=== PATIENT | female | born 1940 | race Caucasian/White ===

== ENCOUNTER → 2017-05-08 | Outpatient (CLI) | payer MEDICAID, MEDICARE ==
[~2017-05-08] MED LIST: ALBU8.5H2 INH; ALPR0.25 PO; AMLO10TA82 PO; ASPI-892 PO; BUDE6HFA INH; CLOP75TA28 PO; ESCI10TA PO; FISH1CAP15 PO; HYDR-3063 PO; IBUP-15 PO; LOSA100T16 PO; MELO7.5T; METF-380; NFNEB10T PO; OLME1TAB25; OMG1KC PO; ONDAN4ODT SL; OXYC-109 PO; RANI-10 PO; SIMV10TA3 PO; TRAZ100T92 PO; TRAZ150T42 PO; TYLENOL
== END ==
LOC: CARD 10:10
PROVIDERS: ATTEND Internal Medicine Cardiovascular Disease
DX: I25.10 Atherosclerotic heart disease of native coronary artery without angina pectoris (principal); I65.23 Occlusion and stenosis of bilateral carotid arteries; R07.89 Other chest pain; I10 Essential (primary) hypertension; E78.2 Mixed hyperlipidemia; R06.02 Shortness of breath; J44.9 Chronic obstructive pulmonary disease, unspecified
CPT/HCPCS: 93306

== ENCOUNTER → 2017-05-30 | Outpatient (CLI) | payer MEDICAID, MEDICARE ==
[~2017-05-30] MED LIST changes: +CATHETER FLUSH 10 ML SYR IV PRN; +REGADENOSON 0.4 MG/5 ML SYR (LEXISCAN) IV ONE
[2017-05-30 13:39] VITALS: BP 168/101
[2017-05-30 13:43] VITALS: BP 144/59
--- NOTE | 2017-05-31 07:19 | STRESS TEST ---
DATE OF SERVICE: 05/30/2017 LEXISCAN MYOVIEW STRESS TEST REPORT REFERRING PHYSICIAN: Renzo Reed MD. Baseline heart rate is 65, baseline blood pressure 168/101. Baseline EKG is sinus rhythm with no ischemic changes. In summary, the patient was injected with 10.74 mCi of technetium-99 Myoview and the resting images were obtained. Then, the patient received 0.4 mg of Lexiscan followed by 31.2 mCi of technetium-99 Myoview. Throughout the test, there were no EKG changes. The resting and stress images were reviewed and compared in the short axis, horizontal long axis, and vertical long axis views. Review of the images showed breast attenuation with mild decreased uptake involving the mid to apical anterior wall and anterolateral wall with mild reversibility. SSS is 6, SDS 3, and TID value 1.32. On the gated images, the left ventricle appeared to be normal in size with normal contractility. Calculated ejection fraction is 70%. CONCLUSION: 1. The patient tolerated Lexiscan well. 2. Breast attenuation with mild reversible ischemia involving the mid to apical anterior wall and anterolateral wall. 3. Transient ischemic dilatation with TID value 1.32. 4. Normal left ventricular size with normal contractility. Calculated ejection fraction is 70%. Job ID: [id number] DocumentID: [id number] Dictated Date: 05/30/2017 17:32:53 Soap Inspector Date: 05/30/2017 23:51:41 Dictated By: TED ORNELAS MD
== END ==
LOC: CARD 10:41
PROVIDERS: ATTEND Internal Medicine Cardiovascular Disease
DX: I25.10 Atherosclerotic heart disease of native coronary artery without angina pectoris (principal); I65.23 Occlusion and stenosis of bilateral carotid arteries; R07.89 Other chest pain; I10 Essential (primary) hypertension; E78.2 Mixed hyperlipidemia; R06.02 Shortness of breath; J44.9 Chronic obstructive pulmonary disease, unspecified
CPT/HCPCS: 78452; 93017

== ENCOUNTER 2017-06-06 06:41 | Day surgery (SDC) | payer MEDICARE ==
[~2017-06-06] VITALS: Ht 167.6 cm; Wt 83.7 kg
[2017-06-06] VITALS (12 sets, daily range): BP systolic 122–163; BP diastolic 55–76
[~2017-06-06 06:41] MED LIST changes: -CATHETER FLUSH 10 ML SYR IV PRN; -REGADENOSON 0.4 MG/5 ML SYR (LEXISCAN) IV ONE
--- OUTSIDE RECORDS SUMMARY | 2017-06-06 06:46 | XMS REPORT | Continuity of Care Document ---
Author Author [facility] Organization [facility] Address Unknown Phone Unavailable Allergies Active Description Code Type Severity Reaction Onset Reported/Identified Relationship to Patient Clinical Status Yes No Known Drug Allergies [id number] Drug Allergy Unknown N/A 02/17/2009 Medications There is no data. Problems Date Dx Coded Attending Type Code Diagnosis Diagnosed By 02/20/2012 Ot 715.31 LOC OSTEOARTH NOS-SHLDER 02/20/2012 Ot 719.41 JOINT PAIN- SHLDER 10/29/2015 Ot 272.4 HYPERLIPIDEMIA NEC/NOS 10/29/2015 Ot 401.9 HYPERTENSION NOS 10/29/2015 Ot 414.01 CORONARY ATHEROSCLEROSIS OF [place] CORON 10/29/2015 Ot 397.0 TRICUSPID VALVE DISEASE 10/29/2015 Ot 401.9 HYPERTENSION NOS 10/29/2015 Ot 414.00 CORON ATHEROSCLER NOS TYPE VESSEL, NATIV 10/29/2015 Ot 424.0 MITRAL VALVE DISORDER 10/29/2015 Ot 272.4 HYPERLIPIDEMIA NEC/NOS 10/29/2015 Ot 401.9 HYPERTENSION NOS 10/29/2015 Ot 789.01 ABDOMINAL PAIN, RIGHT UPPER QUADRANT 10/29/2015 Ot 397.0 TRICUSPID VALVE DISEASE 10/29/2015 Ot 401.9 HYPERTENSION NOS 10/29/2015 Ot 414.00 CORON ATHEROSCLER NOS TYPE VESSEL, NATIV 10/29/2015 Ot 424.0 MITRAL VALVE DISORDER 10/29/2015 GONZALEZEDUARD CADENA VEHICLE CALIBRATION ENGINEER Ot 401.9 HYPERTENSION NOS 10/29/2015 EDURAD GONZALEZ VEHICLE CALIBRATION ENGINEER Ot 414.00 CORON ATHEROSCLER NOS TYPE VESSEL, NATIV 10/29/2015 EDUARD GONZALEZ VEHICLE CALIBRATION ENGINEER Ot 782.3 EDEMA 10/29/2015 EDUARD GONZALEZ VEHICLE CALIBRATION ENGINEER Ot 786.09 RESPIRATORY ABNORM NEC 10/29/2015 TED ORNELAS MD Ot I25.10 ATHSCL HEART DISEASE OF [place] CORONARY 10/29/2015 TED ORNELAS MD Ot I25.10 ATHSCL HEART DISEASE OF [place] CORONARY 11/01/2015 TED ORNELAS MD Ot I25.10 ATHSCL HEART DISEASE OF [place] CORONARY 11/01/2015 TED ORNELAS MD Ot E78.2 MIXED HYPERLIPIDEMIA 11/01/2015 TED ORNELAS MD Ot I10 ESSENTIAL (PRIMARY) HYPERTENSION 11/01/2015 TED ORNELAS MD Ot I25.10 ATHSCL HEART DISEASE OF [place] CORONARY 11/01/2015 TED ORNELAS MD Ot R06.02 SHORTNESS OF BREATH 11/01/2015 TED ORNELAS MD Ot R07.89 OTHER CHEST PAIN 11/05/2015 TED ORNELAS MD Ot E78.2 MIXED HYPERLIPIDEMIA 11/05/2015 TED ORNELAS MD Ot I10 ESSENTIAL (PRIMARY) HYPERTENSION 11/05/2015 TED ORNELAS MD Ot I25.10 ATHSCL HEART DISEASE OF [place] CORONARY 11/05/2015 TED ORNELAS MD Ot R06.02 SHORTNESS OF BREATH 11/05/2015 TED ORNELAS MD Ot R07.89 OTHER CHEST PAIN 11/07/2015 TED ORNELAS MD Ot E78.2 MIXED HYPERLIPIDEMIA 11/07/2015 TED ORNELAS MD Ot I10 ESSENTIAL (PRIMARY) HYPERTENSION 11/07/2015 TED ORNELAS MD Ot I25.10 ATHSCL HEART DISEASE OF [place] CORONARY 11/07/2015 TED ORNELAS MD Ot R06.02 SHORTNESS OF BREATH 11/07/2015 TED ORNELAS MD Ot R07.89 OTHER CHEST PAIN 11/18/2015 TED ORNELAS MD Ot E78.2 MIXED HYPERLIPIDEMIA 11/18/2015 TED ORNELAS MD Ot I10 ESSENTIAL (PRIMARY) HYPERTENSION 11/18/2015 TED ORNELAS MD Ot I25.10 ATHSCL HEART DISEASE OF [place] CORONARY 11/18/2015 TED ORNELAS MD Ot R06.02 SHORTNESS OF BREATH 11/18/2015 TED ORNELAS MD Ot R07.89 OTHER CHEST PAIN 11/24/2015 TED ORNELAS MD Ot E78.2 MIXED HYPERLIPIDEMIA 11/24/2015 TED ORNELAS MD J Ot I10 ESSENTIAL (PRIMARY) HYPERTENSION 11/24/2015 TED ORNELAS MD Ot I25.10 ATHSCL HEART DISEASE OF [place] CORONARY 11/24/2015 TED ORNELAS MD Ot R06.02 SHORTNESS OF BREATH 11/24/2015 TED ORNELAS MD Ot R07.89 OTHER CHEST PAIN 11/26/2015 TED ORNELAS MD Ot E78.2 MIXED HYPERLIPIDEMIA 11/26/2015 TED ORNELAS MD Ot I10 ESSENTIAL (PRIMARY) HYPERTENSION 11/26/2015 TED ORNELAS MD Ot I25.10 ATHSCL HEART DISEASE OF [place] CORONARY 11/26/2015 TED ORNELAS MD Ot R06.02 SHORTNESS OF BREATH 11/26/2015 TED ORNELAS MD Ot R07.89 OTHER CHEST PAIN 12/06/2015 TED ORNELAS MD Ot E78.2 MIXED HYPERLIPIDEMIA 12/06/2015 TED ORNELAS MD Ot I10 ESSENTIAL (PRIMARY) HYPERTENSION 12/06/2015 TED ORNELAS MD Ot I25.10 ATHSCL HEART DISEASE OF [place] CORONARY 12/06/2015 TED ORNELAS MD Ot R06.02 SHORTNESS OF BREATH 12/06/2015 TED ORNELAS MD Ot R07.89 OTHER CHEST PAIN 12/17/2015 TED ORNELAS MD Ot E78.2 MIXED HYPERLIPIDEMIA 12/17/2015 TED ORNELAS MD Ot I10 ESSENTIAL (PRIMARY) HYPERTENSION 12/17/2015 TED ORNELAS MD Ot I25.10 ATHSCL HEART DISEASE OF [place] CORONARY 12/17/2015 TED ORNELAS MD Ot I65.23 OCCLUSION AND STENOSIS OF [place] 12/17/2015 TED ORNELAS MD Ot R06.02 SHORTNESS OF BREATH 12/17/2015 TED ORNELAS MD Ot R07.89 OTHER CHEST PAIN 12/17/2015 TED ORNELAS MD Ot E78.2 MIXED HYPERLIPIDEMIA 12/17/2015 TED ORNELAS MD Ot I10 ESSENTIAL (PRIMARY) HYPERTENSION 12/17/2015 TED ORNELAS MD Ot I25.10 ATHSCL HEART DISEASE OF [place] CORONARY 12/17/2015 TED ORNELAS MD Ot I65.23 OCCLUSION AND STENOSIS OF [place] 12/17/2015 TED ORNELAS MD Ot R06.02 SHORTNESS OF BREATH 12/17/2015 TED ORNELAS MD Ot R07.89 OTHER CHEST PAIN 12/22/2015 GELLENDER DO, ALONSO Gandara Ot E07.9 DISORDER OF THYROID, UNSPECIFIED 12/22/2015 DELFINLENDER DO, ALONSO Gandara Ot E07.9 DISORDER OF THYROID, UNSPECIFIED 01/05/2016 DELFINLENDER DO, ALONSO Gandara Ot E04.9 NONTOXIC GOITER, UNSPECIFIED 01/07/2016 GELLENDER DO, ALONSO Gandara Ot E04.9 NONTOXIC GOITER, UNSPECIFIED 01/10/2016 TED ORNELAS MD Ot E78.2 MIXED HYPERLIPIDEMIA 01/10/2016 TED ORNELAS MD Ot I10 ESSENTIAL (PRIMARY) HYPERTENSION 01/10/2016 TED ORNELAS MD Ot I25.10 ATHSCL HEART DISEASE OF [place] CORONARY 01/10/2016 TED ORNELAS MD Ot I65.23 OCCLUSION AND STENOSIS OF [place] 01/10/2016 TED ORNELAS MD Ot R06.02 SHORTNESS OF BREATH 01/10/2016 TED ORNELAS MD Ot R07.89 OTHER CHEST PAIN 01/11/2016 LINCOLNDER , ALONSO Gandara Ot E07.9 DISORDER OF THYROID, UNSPECIFIED 01/17/2016 TED ORNELAS MD Ot E78.2 MIXED HYPERLIPIDEMIA 01/17/2016 TED ORNELAS MD Ot I10 ESSENTIAL (PRIMARY) HYPERTENSION 01/17/2016 TED ORNELAS MD Ot I25.10 ATHSCL HEART DISEASE OF [place] CORONARY 01/17/2016 TED ORNELAS MD Ot I65.23 OCCLUSION AND STENOSIS OF [place] 01/17/2016 TED ORNELAS MD Ot R06.02 SHORTNESS OF BREATH 01/17/2016 TED ORNELAS MD Ot R07.89 OTHER CHEST PAIN 01/21/2016 DELFINLENDER DO, ALONSO Gandara Ot E07.9 DISORDER OF THYROID, UNSPECIFIED 01/28/2016 DELFINLENDER DO, ALONSO Gandara Ot E04.9 NONTOXIC GOITER, UNSPECIFIED 02/08/2016 GELLENDER DO, ALONSO Gandara Ot E04.9 NONTOXIC GOITER, UNSPECIFIED 03/23/2016 TED ORNELAS MD Ot E11.9 TYPE 2 DIABETES MELLITUS WITHOUT COMPLIC 03/23/2016 TED ORNELAS MD Ot E78.5 HYPERLIPIDEMIA, UNSPECIFIED 03/23/2016 TED ORNELAS MD Ot I10 ESSENTIAL (PRIMARY) HYPERTENSION 03/23/2016 TED ORNELAS MD Ot I25.10 ATHSCL HEART DISEASE OF [place] CORONARY 03/23/2016 TED ORNELAS MD Ot I65.23 OCCLUSION AND STENOSIS OF [place] 03/23/2016 TED ORNELAS MD Ot I70.0 ATHEROSCLEROSIS OF [place] 03/23/2016 TED ORNELAS MD Ot J44.9 CHRONIC OBSTRUCTIVE PULMONARY DISEASE, U 03/23/2016 TED ORNELAS MD Ot Z79.899 OTHER MACHINE BASTER (CURRENT) DRUG THERAPY 03/23/2016 TED ORNELAS MD Ot Z95.5 PRESENCE OF CORONARY ANGIOPLASTY IMPLANT 04/05/2016 TED ORNELAS MD Ot E11.9 TYPE 2 DIABETES MELLITUS WITHOUT COMPLIC 04/05/2016 TED ORNELAS MD Ot E78.5 HYPERLIPIDEMIA, UNSPECIFIED 04/05/2016 TED ORNELAS MD Ot I10 ESSENTIAL (PRIMARY) HYPERTENSION 04/05/2016 TED ORNELAS MD Ot I25.10 ATHSCL HEART DISEASE OF [place] CORONARY 04/05/2016 TED ORNELAS MD Ot I65.23 OCCLUSION AND STENOSIS OF [place] 04/05/2016 TED ORNELAS MD Ot I70.0 ATHEROSCLEROSIS OF [place] 04/05/2016 TED ORNELAS MD Ot J44.9 CHRONIC OBSTRUCTIVE PULMONARY DISEASE, U 04/05/2016 TED ORNELAS MD Ot Z79.899 OTHER CARE HOME (CURRENT) DRUG THERAPY 04/05/2016 TED ORNELAS MD Ot Z95.5 PRESENCE OF CORONARY ANGIOPLASTY IMPLANT 04/06/2016 TED ORNELAS MD Ot E11.9 TYPE 2 DIABETES MELLITUS WITHOUT COMPLIC 04/06/2016 TED ORNELAS MD Ot E78.5 HYPERLIPIDEMIA, UNSPECIFIED 04/06/2016 TED ORNELAS MD Ot I10 ESSENTIAL (PRIMARY) HYPERTENSION 04/06/2016 TED ORNELAS MD Ot I25.10 ATHSCL HEART DISEASE OF [place] CORONARY 04/06/2016 TED ORNELAS MD Ot I65.23 OCCLUSION AND STENOSIS OF [place] 04/06/2016 TED ORNELAS MD Ot I70.0 ATHEROSCLEROSIS OF [place] 04/06/2016 TED ORNELAS MD, Ot J44.9 CHRONIC OBSTRUCTIVE PULMONARY DISEASE, U 04/06/2016 TED ORNELAS MD Ot Z79.899 OTHER MACHINE BASTER (CURRENT) DRUG THERAPY 04/06/2016 TED ORNELAS MD Ot Z95.5 PRESENCE OF CORONARY ANGIOPLASTY IMPLANT 04/06/2016 TED ORNELAS MD Ot E11.9 TYPE 2 DIABETES MELLITUS WITHOUT COMPLIC 04/06/2016 TED ORNELAS MD Ot E78.5 HYPERLIPIDEMIA, UNSPECIFIED 04/06/2016 TED ORNELAS MD Ot I10 ESSENTIAL (PRIMARY) HYPERTENSION 04/06/2016 TED ORNELAS MD Ot I25.10 ATHSCL HEART DISEASE OF [place] CORONARY 04/06/2016 TED ORNELAS MD Ot I65.23 OCCLUSION AND STENOSIS OF [place] 04/06/2016 TED ORNELAS MD Ot I70.0 ATHEROSCLEROSIS OF [place] 04/06/2016 TED ORNELAS MD, Ot J44.9 CHRONIC OBSTRUCTIVE PULMONARY DISEASE, U 04/06/2016 TED ORNELAS MD Ot Z79.899 OTHER CARE HOME (CURRENT) DRUG THERAPY 04/06/2016 TED ORNELAS MD Ot Z95.5 PRESENCE OF CORONARY ANGIOPLASTY IMPLANT 05/07/2017 Ot 397.0 TRICUSPID VALVE DISEASE 05/07/2017 Ot 401.9 HYPERTENSION NOS 05/07/2017 Ot 414.00 CORON ATHEROSCLER NOS TYPE VESSEL, NATIV 05/07/2017 Ot 424.0 MITRAL VALVE DISORDER 05/07/2017 GONZALEZEDUARD CADENA VEHICLE CALIBRATION ENGINEER Ot 401.9 HYPERTENSION NOS 05/07/2017 GONZALEZEDUARD CADENA VEHICLE CALIBRATION ENGINEER Ot 414.00 CORON ATHEROSCLER NOS TYPE VESSEL, NATIV 05/07/2017 GONZALEZEDUARD CADENA VEHICLE CALIBRATION ENGINEER Ot 782.3 EDEMA 05/07/2017 GONZALEZEDUARD CADENA VEHICLE CALIBRATION ENGINEER Ot 786.09 RESPIRATORY ABNORM NEC 05/07/2017 TED ORNELAS MD Ot E78.2 MIXED HYPERLIPIDEMIA 05/07/2017 TED ORNELAS MD Ot I10 ESSENTIAL (PRIMARY) HYPERTENSION 05/07/2017 TED ORNELAS MD Ot I25.10 ATHSCL HEART DISEASE OF [place] CORONARY 05/07/2017 TED ORNELAS MD Ot R06.02 SHORTNESS OF BREATH 05/07/2017 TED ORNELAS MD Ot R07.89 OTHER CHEST PAIN 05/07/2017 TED ORNELAS MD Ot E78.2 MIXED HYPERLIPIDEMIA 05/07/2017 TED ORNELAS MD Ot I10 ESSENTIAL (PRIMARY) HYPERTENSION 05/07/2017 TED ORNELAS MD Ot I25.10 ATHSCL HEART DISEASE OF [place] CORONARY 05/07/2017 TED ORNELAS MD Ot R06.02 SHORTNESS OF BREATH 05/07/2017 TED ORNELAS MD Ot R07.89 OTHER CHEST PAIN 05/07/2017 TED ORNELAS MD Ot E78.2 MIXED HYPERLIPIDEMIA 05/07/2017 TED ORNELAS MD Ot I10 ESSENTIAL (PRIMARY) HYPERTENSION 05/07/2017 TED ORNELAS MD Ot I25.10 ATHSCL HEART DISEASE OF [place] CORONARY 05/07/2017 TED ORNELAS MD Ot I65.23 OCCLUSION AND STENOSIS OF [place] 05/07/2017 TED ORNELAS MD Ot R06.02 SHORTNESS OF BREATH 05/07/2017 TED ORNELAS MD Ot R07.89 OTHER CHEST PAIN 05/07/2017 ALONSO PATTERSON DO Ot E07.9 DISORDER OF THYROID, UNSPECIFIED 05/07/2017 ALONSO PATTERSON DO Ot E04.9 NONTOXIC GOITER, UNSPECIFIED 05/30/2017 TED ORNELAS MD Ot E78.2 MIXED HYPERLIPIDEMIA 05/30/2017 TED ORNELAS MD Ot I10 ESSENTIAL (PRIMARY) HYPERTENSION 05/30/2017 TED ORNELAS MD Ot I25.10 ATHSCL HEART DISEASE OF [place] CORONARY 05/30/2017 TED ORNELAS MD Ot I65.23 OCCLUSION AND STENOSIS OF [place] 05/30/2017 TED ORNELAS MD Ot J44.9 CHRONIC OBSTRUCTIVE PULMONARY DISEASE, U 05/30/2017 TED ORNELAS MD Ot R06.02 SHORTNESS OF BREATH 05/30/2017 TED ORNELAS MD Ot R07.89 OTHER CHEST PAIN Procedures There is no data. Results Test Result Range Bacterial urine culture - 03/22/16 07:05 Bacterial urine culture [id number] NRG COLONY COUNT 10,000/ML - 100,000/ML NRG FTX;REPORTABLE (AND NOT GROUP D STREP) NRG Bacterial susceptibility panel - 03/22/16 07:05 Gentamicin susceptibility test by minimum inhibitory concentration < = NRG Trimethoprim/sulfamethoxazole susceptibility test by minimum inhibitoryconcentration <= NRG Ampicillin susceptibility test by minimum inhibitory concentration R NRG Tobramycin susceptibility test by minimum inhibitory concentration < = NRG Cefazolin susceptibility test by minimum inhibitory concentration < = NRG Ceftriaxone susceptibility test by minimum inhibitory concentration <= NRG Ampicillin/sulbactam susceptibility test by minimum inhibitory concentration 4 NRG Piperacillin/tazobactam susceptibility test by minimum inhibitory concentration <= NRG Ciprofloxacin susceptibility test by minimum inhibitory concentration <= NRG Meropenem susceptibility test by minimum inhibitory concentration < = NRG Nitrofurantoin susceptibility test by minimum inhibitory concentration <= NRG Aztreonam susceptibility test by minimum inhibitory concentration < = NRG Extended spectrum beta lactamase (ESBL) producing bacteria susceptibility test by minimum inhibitory concentration - NRG Methicillin resistant Staphylococcus aureus (MRSA) screening culture - 07:08 MRSA SCREEN RESULT MRSA ISOLATED NRG Automated blood complete blood count (hemogram) panel - 03/23/16 04:08 Blood leukocytes automated count (number/volume) 7.4 10*3/uL 4.3-11.0 Blood erythrocytes automated count (number/volume) 4.06 10*6/uL 4.35-5.85 Venous blood hemoglobin measurement (mass/volume) 11.7 g/dL 11.5-16.0 Blood hematocrit (volume fraction) 35 % 35-52 Automated erythrocyte mean corpuscular volume 86 [foz_us] 80-99 Automated erythrocyte mean corpuscular hemoglobin (mass per erythrocyte) 29 pg 25-34 Automated erythrocyte mean corpuscular hemoglobin concentration measurement ( mass/volume) 33 g/dL 32-36 Automated erythrocyte distribution width ratio 14.6 % 10.0-14.5 Automated blood platelet count (count/volume) 326 10*3/uL 130-400 Automated blood platelet mean volume measurement 9.5 [foz_us] 7.4-10.4 Whole blood basic metabolic panel - 03/23/16 04:08 Serum or plasma sodium measurement (moles/volume) 139 mmol/L 135-145 Serum or plasma potassium measurement (moles/volume) 3.8 mmol/L 3.6-5.0 Serum or plasma chloride measurement (moles/volume) 110 mmol/L 98-107 Carbon dioxide 18 mmol/L 21-32 Serum or plasma anion gap determination (moles/volume) 11 mmol/L 5-14 Serum or plasma urea nitrogen measurement (mass/volume) 10 mg/dL 7-18 Serum or plasma creatinine measurement (mass/volume) 1.00 mg/dL 0.60-1.30 Serum or plasma urea nitrogen/creatinine mass ratio 10 NRG Serum or plasma creatinine measurement with calculation of estimated glomerular filtration rate 54 NRG Serum or plasma glucose measurement (mass/volume) 120 mg/dL 70-105 Serum or plasma calcium measurement (mass/volume) 8.7 mg/dL 8.5-10.1 Encounters ACCT No. Visit Date/Time Discharge Status Pt. Type Provider Facility Loc./Unit Complaint [id number] 05/30/2017 10:41:00 05/30/2017 23:59:59 CLS Outpatient TED ORNELAS MD [facility] CARD CAD I25.10 [id number] 05/08/2017 10:10:00 05/08/2017 23:59:59 CLS Outpatient TED ORNELAS MD [facility] CARD CAD [id number] 03/22/2016 06:46:00 03/23/2016 09:30:00 [facility] Outpatient TED ORNELAS MD [facility] CATH CHEST PAIN,CAD,HTN,HLP, DM,COPD [id number] 01/03/2016 12:01:00 01/03/2016 23:59:59 CLS Outpatient ALONSO PATTERSON DO [facility] RAD THYROID MASS, LFT THYROID LOBE [id number] 12/21/2015 09:20:00 12/21/2015 23:59:59 CLS Outpatient ALONSO PATTERSON DO [facility] RAD THYROID MASS [id number] 12/16/2015 06:55:00 12/16/2015 23:59:59 CLS Outpatient TED ORNELAS MD [facility] RAD CAD; CAROTID ARTRY STENOSIS; CHEST PAIN; HTN [id number] 11/01/2015 08:02:00 11/01/2015 23:59:59 CLS Outpatient TED ORNELAS MD [facility] CARD CAD,CHEST PAIN,HTN DYSPNEA [id number] 10/29/2015 10:25:00 10/29/2015 23:59:59 CLS Outpatient TED ORNELAS MD [facility] CARD CAD,CHEST PAIN,DYSPNEA, HTN,HLP [id number] 09/30/2012 08:23:00 09/30/2012 23:59:59 CLS Outpatient EDUARD GONZALEZ [facility] RAD CAD,HTN,DYSPNEA [id number] 06/06/2017 13:00:00 PEN Preadmit TED ORNELAS MD [facility] CATH ABN STRESS, SOB, HTN [id number] 09/10/2012 09:23:00 Document Registration [id number] 02/20/2012 19:02:00 Document Registration [id number] 05/11/2011 06:06:00 Document Registration [id number] 04/05/2011 08:15:00 Document Registration [id number] 01/10/2011 10:17:00 Document Registration [id number] 06/03/2010 07:42:00 Document Registration
[2017-06-06] MEDS ORDERED: LIDOCAINE 1% INJ 50 ML (XYLOCAINE) VIAL ONE (06:47)
[2017-06-06] MEDS ORDERED: HEParin (CATH LAB) 2,000 ML IV ONE (06:48)
[2017-06-06] MEDS ORDERED: NS IV 1000 ML 1,000 ML IV SCH ×2 (07:00→08:30)
[2017-06-06 07:16] LABS: HEMOGLOBIN 12.6 G/DL (11.5-16.0); MEAN PLATELET VOLUME 9.5 FL (7.4-10.4); RED BLOOD COUNT 5.11 10^6/uL (4.35-5.85); RED CELL DISTRIBUTION WIDTH 17.9 % (10.0-14.5); WHITE BLOOD COUNT 11.3 10^3/uL (4.3-11.0)
[2017-06-06 07:17] LABS: BILIRUBIN,URINE NEGATIVE (NEGATIVE); CLARITY,URINE CLEAR; COLOR,URINE YELLOW; GLUCOSE, URINE (UA) 4+ (NEGATIVE); KETONES,URINE NEGATIVE (NEGATIVE); LEUKOCYTE ESTERASE ,URINE 1+ (NEGATIVE); NITRITE,URINE NEGATIVE (NEGATIVE); PH,URINE 5 (5-9); PROTEIN,URINE 2+ (NEGATIVE); UROBILINOGEN,URINE NORMAL (NORMAL)
[2017-06-06 07:23] LABS: PROTHROMBIN TIME PATIENT 13.1 SEC (12.2-14.7)
[2017-06-06 07:26] LABS: BACTERIA,URINE TRACE /HPF
[2017-06-06] MEDS ORDERED: GLIM2TAB PO (07:33)
[2017-06-06] MEDS ORDERED: EMPA10TA PO (07:33)
[2017-06-06] MEDS ORDERED: TRAM50TA2 PO (07:33)
[2017-06-06] MEDS ORDERED: FURO40TA4 PO (07:33)
[2017-06-06 07:34] LABS: ALBUMIN 3.9 GM/DL (3.2-4.5); BILIRUBIN,TOTAL 0.3 MG/DL (0.1-1.0); CALCIUM 9.5 MG/DL (8.5-10.1); CREATININE SERUM 1.3 MG/DL (0.60-1.30); POTASSIUM 3.4 MMOL/L (3.6-5.0); TOTAL PROTEIN 7.3 GM/DL (6.4-8.2)
[2017-06-06] MEDS ORDERED: MIDAZOLAM 5 MG/5 ML (VERSED) VIAL ONE (07:34)
[2017-06-06] MEDS ORDERED: fentaNYL INJECTION 100 MCG/2 ML AMP ONE (07:35)
--- NOTE | 2017-06-06 07:48 | Cardiac Procedure Note-CS/ASA ---
Pre-Procedure Note Pre-Op Procedure Note H&P Reviewed The H&P was reviewed, patient examined and no changes noted. Date H&P Reviewed: Jun 06, 2017 Time H&P Reviewed: 07:48 Conscious Sedation Pre-Proced Time Reviewed: 07:48 ASA Class: 3 Airway Mallampati Classification: (tulalip appropriate class) I. II. III, IV Lungs Heart ASA score ASA 1: a normal healthy patient ASA 2: a patient with a mild systemic disease (mid diabetes, controlled hypertension, obesity x ASA 3: a patient with a severe systemic disease that limits activity (angina , COPD, prior Myocardial infarction) ASA 4: a patient with an incapacitating disease that is a constant threat to life (CHF, renal failure) ASA 5: a moribund patient not expected to survive 24 hrs. (ruptured aneurysm) ASA 6: a declared brain patient whose organs are being harvested. For emergent operations, add the letter E after the classification Grade 3 Sedation Plan: Analgesia, Amnesia, Plan communicated to team members, Discussed options with patient/fam, Discussed risks with patient/fam Note The patient is an appropriate candidate to undergo the planned procedure, sedation, and anesthesia. The patient immediately re-assessed prior to indication. TED ORNELAS MD Jun 06, 2017 07:48
[2017-06-06] MEDS ORDERED: INFLUENZA TRIvalent 2017-2018 0.5 ML/45 MCG SYR IM ONE (08:00)
[2017-06-06] MEDS ORDERED: PATIENT MAY USE OWN MEDS, ALL PO SCH (08:30)
--- NOTE | 2017-06-06 08:31 | Discharge Inst-Post CATH ---
Discharge Inst-CATH Post Cardiac Cath D/C Inst Follow Up/Plan Appointment with Dr. August's office in 2-4 weeks CARDIAC CATH DISCHARGE INSTRUCTIONS *Hold Metformin for 48 hours post heart cath. ACTIVITY * Go Home directly and rest. * Limit activity of the leg (or wrist if it was used) for 7 days including aerobics, swimming, jogging, bicycling, etc. * Restrict stair-climbing for 7 days if possible, if not, climb up with your non -cath leg, then bring together on the same step. * Avoid lifting, pushing, pulling or excessive movement of the affected extremity for 7 days. * Customary sexual activity may be resumed after 2 days-use caution not to use a position that strains or causes pain to the affected extremity. * No driving for 24 hours. * NO SMOKING. * Avoid straining for bowel movements for 7 days. * Gentle walking on level ground is allowed. * Returning to work will depend on the type of procedure and the results. Your doctor will discuss this with you. CALL YOUR DOCTOR FOR ANY OF THE FOLLOWING: *If bleeding from the puncture site occurs- Apply gentle pressure to site with clean cloth and call your doctor or EMS. * If a knot or lump forms under the skin, increases in size, or causes pain. * If bruising appears to be worsening or moving further down your leg instead of disappearing. * Temperature above 101 F. CARE OF YOUR GROIN INCISION; * Bruising or purple discoloration of the skin near the puncture site is common. * You may shower only, no bathtub bathing for 5 days. Be careful to avoid slipping as your leg may feel stiff. * If a closure device was used on your femoral artery, please see the attached guide regarding care of the device and your leg. * REMOVE the dressing from your groin the next day after your procedure in the shower. CARE OF YOUR WRIST INCISION; * Bruising or purple discoloration of the skin near the puncture site is common. * You may shower. * DO NOT submerge wrist. * Remove dressing in 24 hours. TED AUGUST MD Jun 06, 2017 8:31 am
--- NOTE | 2017-06-06 08:35 | Cardiac Cath Report ---
Cardiac Cath Report Physician (s)/Under Baster (s) Physician TED ORNELAS MD Pre-Procedure Diagnosis Pre-Procedure Diagnosis: Coronary artery disease Post-Procedure Note Procedure Start Date: Jun 06, 2017 Name of Procedure: Left heart catheterization, left ventricular pressure Findings/Procedure Note PROCEDURE NOTE: After explaining the procedure to the patient, all pros and cons were explained, all questions were answered. The patient signed the consent and then she was placed on the cardiac catheterization laboratory. The patient was placed on the cardiac catheterization laboratory. Groin was prepped SL fashion local anesthesia was used. Sheath placed in the artery. David right and left catheter were used to access the coronary system. David right was used to cross the valve, pressure was measured, no left ventricular gram was done. Pullback LV to aorta. At the end of the procedure the sheath was removed. Closure device was used FINDINGS: Hemodynamics LV 126/9, end-diastolic pressure of 9 Aorta 121/44 mean of 72 ANATOMY: Left Main is free of obstructive disease Left Anterior Descending has patent stent with mild to moderate disease at the mid and distal portion Left Circumflex is large dominant artery with [id number] disease Right Coronory Artery a small nondominant artery with 2 area of moderate to severe stenosis, very small artery not amendable to intervention LV Gram was not done, pressure was measured CONCLUSION: 1. Patent stent in the proximal and mid LAD, mild to moderate disease distal to the stent, smaller artery, significant disease distally at the apex area. Fairly small artery. 2. Moderate severe stenosis at the mid and distal right coronary artery that is very small artery not amendable to intervention 3. Mild to moderate disease in the distal circumflex artery DISCUSSION AND RECOMMENDATION: maximizing medical therapy is recommended no intervention is warranted Anesthesia Type: Conscious Sedation Estimated blood loss (mL): 10 ml Contrast Amount: 38 ml Total Radiation Dose: 251 mGy Post-Procedure Diagnosis Post-operative diagnosis: Coronary artery disease Hypertension Hyperlipidemia Diabetes mellitus TED ORNELAS MD Jun 06, 2017 8:35 am
--- NOTE | 2017-06-06 08:44 | Diagnostic Imaging Report ---
EXAMINATION: Portable erect AP chest at 0717 hours. INDICATION: Heart catheterization. FINDINGS: The heart size is within normal limits and stable when compared to 03/22/2016. The lungs are clear. There is no evidence for failure, pneumonia, or pleural effusion. The mediastinum is not widened. The osseous structures are intact. IMPRESSION: There is no evidence for an acute cardiopulmonary abnormality. Dictated by: Dictated on workstation # [id number]
== END 2017-06-06 13:15 | disposition home or self-care (01) ==
LOC: CATH 06:41 → SURG 08:45 → CATH 13:15
PROVIDERS: ATTEND Internal Medicine Cardiovascular Disease
DX: I25.10 Atherosclerotic heart disease of native coronary artery without angina pectoris (principal); Z95.5 Presence of coronary angioplasty implant and graft; I10 Essential (primary) hypertension; E78.5 Hyperlipidemia, unspecified; Z79.899 Other long term (current) drug therapy; Z79.82 Long term (current) use of aspirin; Z79.84 Long term (current) use of oral hypoglycemic drugs; E11.9 Type 2 diabetes mellitus without complications; J44.9 Chronic obstructive pulmonary disease, unspecified; I65.23 Occlusion and stenosis of bilateral carotid arteries
CPT/HCPCS: 36415; 71045; 80053; 80061; 81000; 82962; 85027; 85610; 85730; 87081; 87088; 93458

== ENCOUNTER 2017-12-24 21:21 | Emergency (ER) | payer MEDICARE ==
[~2017-12-24] VITALS: Ht 162.6 cm; Wt 88.5 kg
[~2017-12-24 21:21] MED LIST changes: +EMPA10TA PO; +FURO40TA4 PO; +GLIM2TAB PO; +TRAM50TA2 PO; +TRAZ-190 PO; -TRAZ100T92 PO
--- NOTE | 2017-12-24 22:50 | ED Fall/Injury ---
General Stated Complaint: FALL/L ARM INJ Source: patient, family Exam Limitations: no limitations History of Present Illness Date Seen by Provider: Dec 24, 2017 Time Seen by Provider: 22:48 Initial Comments To ER complaint by family with reports of a fall at home about 2 hours ago. She tripped over her dog. She landed on her left side and now has pain to the left wrist and pain in the left shoulder. She did not hit her head and denies pain anywhere else. Occurred: just prior to arrival Severity: moderate Injuries/Pain Location: upper extremity Associated Symptoms (Fall): No Abdominal Pain, No Chest Pain, No Confusion, No Dizziness, No Headache Allergies and Home Medications Allergies Coded Allergies: No Known Drug Allergies (Verified , 02/17/09) Home Medications Albuterol 8.5 Gm Hfa.aer.ad, 2 PUFF INH PRN, (Reported) TID PRN Alprazolam 0.25 Mg Tablet, 0.25 MG PO TID, (Reported) Amlodipine Besylate 10 Mg Tablet, 10 MG PO DAILY, (Reported) Aspirin 81 Mg Tablet.dr, 81 MG PO DAILY, (Reported) Budesonide/Formoterol Fumarate 10.2 Gm Hfa.aer.ad, 1 PUFF INH BID, (Reported) bid Clopidogrel Bisulfate 75 Mg Tablet, 75 MG PO DAILY, (Reported) Empagliflozin 10 Mg Tablet, 10 MG PO DAILY, (Reported) Escitalopram Oxalate 10 Mg Tablet, 10 MG PO DAILY, (Reported) Fish Oil/Dha/Epa 1 Each Capsule, 1,200 MG PO DAILY, (Reported) Furosemide 40 Mg Tablet, 40 MG PO DAILY, (Reported) Glimepiride 2 Mg Tablet, 2 MG PO DAILY, (Reported) Hydrocodone/Acetaminophen 1 Each Tablet, 1 EACH PO Q4H PRN for PAIN-MODERATE TO SEVERE Prescribed by: WALDEMAR ROGER on 12/24/17 3996 Nebivolol Hcl 10 Mg Tablet, 10 MG PO DAILY, (Reported) Ranitidine Hcl 150 Mg Tablet, 150 MG PO BID, (Reported) 50mg at HS Simvastatin 10 Mg Tablet, 10 MG PO HS, (Reported) Tramadol HCl 50 Mg Tablet, 50 MG PO BID, (Reported) Trazodone HCl 100 Mg Tablet, 100 MG PO HS, (Reported) Patient Home Medication List Home Medication List Reviewed: Yes Review of Systems Constitutional: see HPI Eyes: No Symptoms Reported Ears, Nose, Mouth, Throat: no symptoms reported Respiratory: no symptoms reported Cardiovascular: no symptoms reported Genitourinary: no symptoms reported Musculoskeletal: no symptoms reported Skin: no symptoms reported Psychiatric/Neurological: No Symptoms Reported Past [id number]-Lhjncw Hx Patient Social History Type Used: Cigarettes Former Smoker, Quit: Jun 06, 2006 Recent Foreign Travel: No Contact w/Someone Who Travel: No Past Medical History COPD Reproductive Disorders: Yes Physical Exam Vital Signs Capillary Refill : Height, Weight, BMI Height: 5'6.00" Weight: 184lbs. 7.0oz. 83.198314vg; 29.8 BMI Method:Stated General Appearance: WD/WN, no apparent distress HEENT: PERRL/EOMI, normal ENT inspection Neck: non-tender, full range of motion Respiratory: no respiratory distress, no accessory muscle use Extremities: normal capillary refill, other (limited abduction of the shoulder due to pain. There is some swelling over the distal forearm. She has brisk capillary refill of the fingertips, flexion and extension ability of the fingers and normal sensation of the fingertips.) Neurologic/Psychiatric: alert, normal mood/affect, oriented x 3 Skin: normal color, warm/dry Padmini Coma Score Best Eye Response: (4) Open Spontaneously Best Verbal Response: (5) Oriented Best Motor Response: (6) Obeys Commands Padmini Total: 15 Progress/Results/Core Measures Results/Orders My Orders Orders - WALDEMAR ROGER APRN Wrist, Left, 3 Views Or More (12/24/17 22:45) Shoulder, Left, 3 Views (12/24/17 22:45) Rx-Hydrocodone/Apap 5-325 Mg (Rx-Vicodin (12/24/17 23:00) Departure Communication (Admissions) PT PLACED IN SUGAR TONG STYLE SPLINT WITH 3INCH ORTHOGLASS BY ME Impression Primary Impression: Distal radius fracture, left Disposition: 01 HOME, SELF-CARE Condition: Stable Departure-Patient Inst. Decision time for Depature: 22:50 Referrals: ALONSO PATTERSON DO (PCP/Family) Primary Care Physician CINTIA HOLT MD,NAHTALIE MOJICA,MARINO HANSEN,LISANDRA Vanegas MD Patient Instructions: Wrist Fracture (DC) Add. Discharge Instructions: 1. Leave the splint on at all times until you follow up with orthopedics 2. Elevate the wrist as much as possible tonight. This will help with swelling and subsequent pain. Take pain medication as directed. Scripts Hydrocodone/Acetaminophen ([place] 5-325 Tablet) 1 Each Tablet 1 EACH PO Q4H PRN for PAIN-MODERATE TO SEVERE, #14 TAB Prov: WALDEMAR ROGER APRN 12/24/17 Copy Copies To 1: ALONSO PATTERSON PETER J APRN Dec 24, 2017 22:50
[2017-12-24] MEDS ORDERED: HYDR-757 PO (22:57)
[2017-12-24] MEDS ORDERED: RX-HYDROCODONE/APAP 5/325 MG #4 TAB PK PO PRN (23:00)
[2017-12-24] MEDS ORDERED: RX-TRAMADOL 50 MG (ULTRAM) TAB PPK#4 PO ONE (23:11)
[2017-12-24] MEDS ORDERED: RX-TRAMADOL 50 MG (ULTRAM) TAB PPK#4 PO STA (23:13)
[2017-12-24 23:24] VITALS: BP 181/60
--- OUTSIDE RECORDS SUMMARY | 2017-12-24 23:27 | XMS REPORT | Continuity of Care Document ---
Author Author [facility] Organization [facility] Address Unknown Phone Unavailable Allergies Active Description Code Type Severity Reaction Onset Reported/Identified Relationship to Patient Clinical Status Yes No Known Drug Allergies [id number] Drug Allergy Unknown N/A 02/17/2009 Medications There is no data. Problems Date Dx Coded Attending Type Code Diagnosis Diagnosed By 02/20/2012 Ot 715.31 LOC OSTEOARTH NOS-SHLDER 02/20/2012 Ot 719.41 JOINT PAIN- SHLDER 10/29/2015 Ot 272.4 HYPERLIPIDEMIA NEC/NOS 10/29/2015 Ot 401.9 HYPERTENSION NOS 10/29/2015 Ot 414.01 CORONARY ATHEROSCLEROSIS OF [place] CORON 10/29/2015 Ot 397.0 TRICUSPID VALVE DISEASE [...] 424.0 MITRAL VALVE DISORDER 10/29/2015 GONZALEZEDUARD CADENA PHARMACOMETRICIAN Ot 401.9 HYPERTENSION NOS 10/29/2015 GONZALEZEDUARD CADENA PHARMACOMETRICIAN Ot 414.00 CORON ATHEROSCLER NOS TYPE VESSEL, NATIV 10/29/2015 EDUARD GONZALEZ PHARMACOMETRICIAN Ot 782.3 EDEMA 10/29/2015 EDUARD GONZALEZ PHARMACOMETRICIAN Ot 786.09 RESPIRATORY ABNORM NEC 10/29/2015 TED ORNELAS MD Ot I25.10 ATHSCL HEART DISEASE OF [place] CORONARY 10/29/2015 TED ORNELAS MD Ot I25.10 ATHSCL HEART DISEASE OF [place] CORONARY 11/01/2015 TED ORNELAS MD Ot I25.10 ATHSCL HEART DISEASE OF [place] CORONARY 11/01/2015 TED ORNELAS MD Ot E78.2 MIXED HYPERLIPIDEMIA 11/01/2015 TED ORNELAS MD Ot I10 ESSENTIAL (PRIMARY) HYPERTENSION 11/01/2015 TED ORNELAS MD Ot I25.10 ATHSCL HEART DISEASE OF [place] CORONARY 11/01/2015 TED ORNELAS MD Ot R06.02 SHORTNESS OF BREATH 11/01/2015 TED ORNELAS MD Ot R07.89 OTHER CHEST PAIN 11/05/2015 TED ORNELAS MD Ot E78.2 MIXED HYPERLIPIDEMIA 11/05/2015 TED ORNELAS MD Ot I10 ESSENTIAL (PRIMARY) HYPERTENSION 11/05/2015 TED ORNELAS MD Ot I25.10 ATHSCL HEART DISEASE OF [place] CORONARY 11/05/2015 TED ORNELAS MD Ot R06.02 SHORTNESS OF BREATH 11/05/2015 TED ORNELAS MD Ot R07.89 OTHER CHEST PAIN 11/07/2015 TED ORNELAS MD Ot E78.2 MIXED HYPERLIPIDEMIA 11/07/2015 TED ORNELAS MD Ot I10 ESSENTIAL (PRIMARY) HYPERTENSION 11/07/2015 TED ORNELAS MD Ot I25.10 ATHSCL HEART DISEASE OF [place] CORONARY 11/07/2015 TED ORNELAS MD Ot R06.02 SHORTNESS OF BREATH 11/07/2015 TED ORNELAS MD Ot R07.89 OTHER CHEST PAIN 11/18/2015 TED ORNELAS MD Ot E78.2 MIXED HYPERLIPIDEMIA 11/18/2015 TED ORNELAS MD Ot I10 ESSENTIAL (PRIMARY) HYPERTENSION 11/18/2015 TED ORNELAS MD Ot I25.10 ATHSCL HEART DISEASE OF [place] CORONARY 11/18/2015 TED ORNELAS MD Ot R06.02 SHORTNESS OF BREATH 11/18/2015 TED ORNELAS MD Ot R07.89 OTHER CHEST PAIN 11/24/2015 TED ORNELAS MD Ot E78.2 MIXED HYPERLIPIDEMIA 11/24/2015 TED ORNELAS MD J Ot I10 ESSENTIAL (PRIMARY) HYPERTENSION 11/24/2015 TED ORNELAS MD Ot I25.10 ATHSCL HEART DISEASE OF [place] CORONARY 11/24/2015 TED ORNELAS MD Ot R06.02 SHORTNESS OF BREATH 11/24/2015 TED ORNELAS MD Ot R07.89 OTHER CHEST PAIN 11/26/2015 TED ORNELAS MD Ot E78.2 MIXED HYPERLIPIDEMIA 11/26/2015 TED ORNELAS MD Ot I10 ESSENTIAL (PRIMARY) HYPERTENSION 11/26/2015 TED ORNELAS MD Ot I25.10 ATHSCL HEART DISEASE OF [place] CORONARY 11/26/2015 TED ORNELAS MD Ot R06.02 SHORTNESS OF BREATH 11/26/2015 TED ORNELAS MD Ot R07.89 OTHER CHEST PAIN 12/06/2015 TED ORNELAS MD Ot E78.2 MIXED HYPERLIPIDEMIA 12/06/2015 TED ORNELAS MD Ot I10 ESSENTIAL (PRIMARY) HYPERTENSION 12/06/2015 TED ORNELAS MD Ot I25.10 ATHSCL HEART DISEASE OF [place] CORONARY 12/06/2015 TED ORNELAS MD Ot R06.02 SHORTNESS OF BREATH 12/06/2015 TED ORNELAS MD Ot R07.89 OTHER CHEST PAIN 12/17/2015 TED ORNELAS MD Ot E78.2 MIXED HYPERLIPIDEMIA 12/17/2015 TED ORNELAS MD Ot I10 ESSENTIAL (PRIMARY) HYPERTENSION 12/17/2015 TED ORNELAS MD Ot I25.10 ATHSCL HEART DISEASE OF [place] CORONARY 12/17/2015 TED ORNELAS MD Ot I65.23 OCCLUSION AND STENOSIS OF [place] 12/17/2015 TED ORNELAS MD Ot R06.02 SHORTNESS OF BREATH 12/17/2015 TED ORNELAS MD Ot R07.89 OTHER CHEST PAIN 12/17/2015 TED ORNELAS MD Ot E78.2 MIXED HYPERLIPIDEMIA 12/17/2015 TED ORNELAS MD Ot I10 ESSENTIAL (PRIMARY) HYPERTENSION 12/17/2015 TED ORNELAS MD Ot I25.10 ATHSCL HEART DISEASE OF [place] CORONARY 12/17/2015 TED ORNELAS MD Ot I65.23 [...] MD Ot I25.10 ATHSCL HEART DISEASE OF [place] CORONARY 01/10/2016 TED ORNELAS MD Ot I65.23 [...] MD Ot I25.10 ATHSCL HEART DISEASE OF [place] CORONARY 01/17/2016 TED ORNELAS MD Ot I65.23 [...] MD Ot I25.10 ATHSCL HEART DISEASE OF [place] CORONARY 03/23/2016 TED ORNELAS MD Ot I65.23 OCCLUSION AND STENOSIS OF [place] 03/23/2016 TED ORNELAS MD Ot I70.0 ATHEROSCLEROSIS OF [place] 03/23/2016 TED ORNELAS MD Ot J44.9 CHRONIC OBSTRUCTIVE PULMONARY DISEASE, U 03/23/2016 TED ORNELAS MD Ot Z79.899 OTHER [place] (CURRENT) DRUG THERAPY 03/23/2016 TED ORNELAS MD Ot Z95.5 PRESENCE OF CORONARY ANGIOPLASTY IMPLANT 04/05/2016 TED ORNELAS MD Ot E11.9 TYPE 2 DIABETES MELLITUS WITHOUT COMPLIC 04/05/2016 TED ORNELAS MD Ot E78.5 HYPERLIPIDEMIA, UNSPECIFIED 04/05/2016 TED ORNELAS MD Ot I10 ESSENTIAL (PRIMARY) HYPERTENSION 04/05/2016 TED ORNELAS MD Ot I25.10 ATHSCL HEART DISEASE OF [place] CORONARY 04/05/2016 TED ORNELAS MD Ot I65.23 OCCLUSION AND STENOSIS OF [place] 04/05/2016 TED ORNELAS MD Ot I70.0 ATHEROSCLEROSIS OF [place] 04/05/2016 TED ORNELAS MD Ot J44.9 CHRONIC OBSTRUCTIVE PULMONARY DISEASE, U 04/05/2016 TED ORNELAS MD Ot Z79.899 OTHER [facility] (CURRENT) DRUG THERAPY 04/05/2016 TED ORNELAS MD Ot Z95.5 PRESENCE OF CORONARY ANGIOPLASTY IMPLANT 04/06/2016 TED ORNELAS MD Ot E11.9 TYPE 2 DIABETES MELLITUS WITHOUT COMPLIC 04/06/2016 TED ORNELAS MD Ot E78.5 HYPERLIPIDEMIA, UNSPECIFIED 04/06/2016 TED ORNELAS MD Ot I10 ESSENTIAL (PRIMARY) HYPERTENSION 04/06/2016 TED ORNELAS MD Ot I25.10 ATHSCL HEART DISEASE OF [place] CORONARY 04/06/2016 TED ORNELAS MD Ot I65.23 OCCLUSION AND STENOSIS OF [place] 04/06/2016 TED ORNELAS MD Ot I70.0 ATHEROSCLEROSIS OF [place] 04/06/2016 TED ORNELAS MD, Ot J44.9 CHRONIC OBSTRUCTIVE PULMONARY DISEASE, U 04/06/2016 TED ORNELAS MD Ot Z79.899 OTHER [place] (CURRENT) DRUG THERAPY 04/06/2016 TED ORNELAS MD Ot Z95.5 PRESENCE OF CORONARY ANGIOPLASTY IMPLANT 04/06/2016 TED ORNELAS MD Ot E11.9 TYPE 2 DIABETES MELLITUS WITHOUT COMPLIC 04/06/2016 TED ORNELAS MD Ot E78.5 HYPERLIPIDEMIA, UNSPECIFIED 04/06/2016 TED ORNELAS MD Ot I10 ESSENTIAL (PRIMARY) HYPERTENSION 04/06/2016 TED ORNELAS MD Ot I25.10 ATHSCL HEART DISEASE OF [place] CORONARY 04/06/2016 TED ORNELAS MD Ot I65.23 OCCLUSION AND STENOSIS OF [place] 04/06/2016 TED ORNELAS MD Ot I70.0 ATHEROSCLEROSIS OF [place] 04/06/2016 TED ORNELAS MD, Ot J44.9 CHRONIC OBSTRUCTIVE PULMONARY DISEASE, U 04/06/2016 TED ORNELAS MD Ot Z79.899 OTHER [facility] (CURRENT) DRUG THERAPY 04/06/2016 TED ORNELAS MD Ot Z95.5 PRESENCE OF CORONARY ANGIOPLASTY IMPLANT 05/07/2017 Ot 397.0 TRICUSPID VALVE DISEASE 05/07/2017 Ot 401.9 HYPERTENSION NOS 05/07/2017 Ot 414.00 CORON ATHEROSCLER NOS TYPE VESSEL, NATIV 05/07/2017 Ot 424.0 MITRAL VALVE DISORDER 05/07/2017 GONZALEZEDUARD CADENA PHARMACOMETRICIAN Ot 401.9 HYPERTENSION NOS 05/07/2017 GONZALEZEDUARD CADENA PHARMACOMETRICIAN Ot 414.00 CORON ATHEROSCLER NOS TYPE VESSEL, NATIV 05/07/2017 GONZALEZEDUARD CADENA PHARMACOMETRICIAN Ot 782.3 EDEMA 05/07/2017 GONZALEZEDUARD CADENA PHARMACOMETRICIAN Ot 786.09 RESPIRATORY ABNORM NEC 05/07/2017 TED ORNELAS MD Ot E78.2 MIXED HYPERLIPIDEMIA 05/07/2017 TED ORNELAS MD Ot I10 ESSENTIAL (PRIMARY) HYPERTENSION 05/07/2017 TED ORNELAS MD Ot I25.10 ATHSCL HEART DISEASE OF [place] CORONARY 05/07/2017 TED ORNELAS MD Ot R06.02 SHORTNESS OF BREATH 05/07/2017 TED ORNELAS MD Ot R07.89 OTHER CHEST PAIN 05/07/2017 TED ORNELAS MD Ot E78.2 MIXED HYPERLIPIDEMIA 05/07/2017 TED ORNELAS MD Ot I10 ESSENTIAL (PRIMARY) HYPERTENSION 05/07/2017 TED ORNELAS MD Ot I25.10 ATHSCL HEART DISEASE OF [place] CORONARY 05/07/2017 TED ORNELAS MD Ot R06.02 SHORTNESS OF BREATH 05/07/2017 TED ORNELAS MD Ot R07.89 OTHER CHEST PAIN 05/07/2017 TED ORNELAS MD Ot E78.2 MIXED HYPERLIPIDEMIA 05/07/2017 TED ORNELAS MD Ot I10 ESSENTIAL (PRIMARY) HYPERTENSION 05/07/2017 TED ORNELAS MD Ot I25.10 ATHSCL HEART DISEASE OF [place] CORONARY 05/07/2017 TED ORNELAS MD Ot I65.23 [...] MD Ot I25.10 ATHSCL HEART DISEASE OF [place] CORONARY 05/30/2017 TED ORNELAS MD Ot I65.23 OCCLUSION AND STENOSIS OF [place] 05/30/2017 TED ORNELAS MD Ot J44.9 CHRONIC OBSTRUCTIVE PULMONARY DISEASE, U 05/30/2017 TED ORNELAS MD Ot R06.02 SHORTNESS OF BREATH 05/30/2017 TED ORNELAS MD Ot R07.89 OTHER CHEST PAIN 06/06/2017 TED ORNELAS MD Ot E11.9 TYPE 2 DIABETES MELLITUS WITHOUT COMPLIC 06/06/2017 TED ORNELAS MD Ot E78.5 HYPERLIPIDEMIA, UNSPECIFIED 06/06/2017 TED ORNELAS MD Ot I10 ESSENTIAL (PRIMARY) HYPERTENSION 06/06/2017 TED ORNELAS MD Ot I25.10 ATHSCL HEART DISEASE OF [place] CORONARY 06/06/2017 TED ORNELAS MD Ot I65.23 OCCLUSION AND STENOSIS OF [place] 06/06/2017 TED ORNELAS MD Ot J44.9 CHRONIC OBSTRUCTIVE PULMONARY DISEASE, U 06/06/2017 TED ORNELAS MD Ot Z79.82 [place] (CURRENT) USE OF ASPIRIN 06/06/2017 TED ORNELAS MD Ot Z79.84 [facility] (CURRENT) USE OF ORAL HYPOGLYC 06/06/2017 TED ORNELAS MD Ot Z79.899 OTHER [place] (CURRENT) DRUG THERAPY 06/06/2017 TED ORNELAS MD Ot Z95.5 PRESENCE OF CORONARY ANGIOPLASTY IMPLANT 06/07/2017 TED ORNELAS MD Ot E11.9 TYPE 2 DIABETES MELLITUS WITHOUT COMPLIC 06/07/2017 TED ORNELAS MD Ot E78.5 HYPERLIPIDEMIA, UNSPECIFIED 06/07/2017 TED ORNELAS MD Ot I10 ESSENTIAL (PRIMARY) HYPERTENSION 06/07/2017 TED ORNELAS MD Ot I25.10 ATHSCL HEART DISEASE OF [place] CORONARY 06/07/2017 TED ORNELAS MD Ot I65.23 OCCLUSION AND STENOSIS OF [place] 06/07/2017 TED ORNELAS MD Ot J44.9 CHRONIC OBSTRUCTIVE PULMONARY DISEASE, U 06/07/2017 TED ORNELAS MD Ot Z79.82 [place] (CURRENT) USE OF ASPIRIN 06/07/2017 TED ORNELAS MD Ot Z79.84 [facility] (CURRENT) USE OF ORAL HYPOGLYC 06/07/2017 TED ORNELAS MD Ot Z79.899 OTHER [facility] (CURRENT) DRUG THERAPY 06/07/2017 TED ORNELAS MD Ot Z95.5 PRESENCE OF CORONARY ANGIOPLASTY IMPLANT 06/29/2017 TED ORNELAS MD Ot E78.2 MIXED HYPERLIPIDEMIA 06/29/2017 TED ORNELAS MD Ot I10 ESSENTIAL (PRIMARY) HYPERTENSION 06/29/2017 TED ORNELAS MD Ot I25.10 ATHSCL HEART DISEASE OF [place] CORONARY 06/29/2017 TED ORNELAS MD Ot I65.23 OCCLUSION AND STENOSIS OF [place] 06/29/2017 TED ORNELAS MD, Ot J44.9 CHRONIC OBSTRUCTIVE PULMONARY DISEASE, U 06/29/2017 TED ORNELAS MD Ot R06.02 SHORTNESS OF BREATH 06/29/2017 TED ORNELAS MD, Ot R07.89 OTHER CHEST PAIN Procedures There is no data. Results Test Result Range Bacterial urine culture - 03/22/16 07:05 Bacterial urine culture [id number] NRG COLONY COUNT 10,000/ML - 100,000/ML NRG [...] susceptibility test by minimum inhibitory concentration - NR Methicillin resistant Staphylococcus aureus (MRSA) screening culture [...] plasma calcium measurement (mass/volume) 8.7 mg/dL 8.5-10.1 Complete urinalysis with reflex to culture - 06/06/17 06:55 Urine color determination YELLOW NRG Urine clarity determination CLEAR NRG Urine pH measurement by test strip 5 5-9 Specific gravity of urine by test strip 1.020 1.016- 1.022 Urine protein assay by test strip, semi-quantitative 2+ NEGATIVE Urine glucose detection by automated test strip 4+ NEGATIVE Erythrocytes detection in urine sediment by light microscopy 2+ NEGATIVE Urine ketones detection by automated test strip NEGATIVE NEGATIVE Urine nitrite detection by test strip NEGATIVE NEGATIVE Urine total bilirubin detection by test strip NEGATIVE NEGATIVE Urine urobilinogen measurement by automated test strip (mass/volume) NORMAL NORMAL Urine leukocyte esterase detection by dipstick 1+ NEGATIVE Automated urine sediment erythrocyte count by microscopy (number/high power field) [HPF] NRG Automated urine sediment leukocyte count by microscopy (number/high power field ) [HPF] NRG Bacteria detection in urine sediment by light microscopy TRACE NRG Squamous epithelial cells detection in urine sediment by light microscopy 5-10 NRG Crystals detection in urine sediment by light microscopy NONE NRG Casts detection in urine sediment by light microscopy NONE NRG Mucus detection in urine sediment by light microscopy NEGATIVE NRG Complete urinalysis with reflex to culture YES [facility] Bacterial urine culture - 06/06/17 06:55 URINE CULTURE RESULTS MORE THAN 3 ISOLATES [facility] Automated blood complete blood count (hemogram) panel - 06/06/17 07:04 Blood leukocytes automated count (number/volume) 11.3 10*3/uL 4.3-11.0 Blood erythrocytes automated count (number/volume) 5.11 10*6/uL 4.35-5.85 Venous blood hemoglobin measurement (mass/volume) 12.6 g/dL 11.5-16.0 Blood hematocrit (volume fraction) 38 % 35-52 Automated erythrocyte mean corpuscular volume 75 [foz_us] 80-99 Automated erythrocyte mean corpuscular hemoglobin (mass per erythrocyte) 25 pg 25-34 Automated erythrocyte mean corpuscular hemoglobin concentration measurement ( mass/volume) 33 g/dL 32-36 Automated erythrocyte distribution width ratio 17.9 % 10.0-14.5 Automated blood platelet count (count/volume) 435 10*3/uL 130-400 Automated blood platelet mean volume measurement 9.5 [foz_us] 7.4-10.4 PT panel in platelet poor plasma by coagulation assay - 06/06/17 07:04 Prothrombin time (PT) in platelet poor plasma by coagulation assay 13.1 s 12.2-14.7 INR in platelet poor plasma or blood by coagulation assay 1.0 0.8-1.4 Activated partial thromboplastin time (aPTT) in platelet poor plasma bycoagulation assay - 06/06/17 07:04 Activated partial thromboplastin time (aPTT) in platelet poor plasma bycoagulation assay 38 s 24-35 Comprehensive metabolic panel - 06/06/17 07:04 Serum or plasma sodium measurement (moles/volume) 139 mmol/L 135-145 Serum or plasma potassium measurement (moles/volume) 3.4 mmol/L 3.6-5.0 Serum or plasma chloride measurement (moles/volume) 105 mmol/L 98-107 Carbon dioxide 22 mmol/L 21-32 Serum or plasma anion gap determination (moles/volume) 12 mmol/L 5-14 Serum or plasma urea nitrogen measurement (mass/volume) 14 mg/dL 7-18 Serum or plasma creatinine measurement (mass/volume) 1.30 mg/dL 0.60-1.30 Serum or plasma urea nitrogen/creatinine mass ratio 11 NRG Serum or plasma creatinine measurement with calculation of estimated glomerular filtration rate 40 NRG Serum or plasma glucose measurement (mass/volume) 180 mg/dL 70-105 Serum or plasma calcium measurement (mass/volume) 9.5 mg/dL 8.5-10.1 Serum or plasma total bilirubin measurement (mass/volume) 0.3 mg/dL 0.1-1.0 Serum or plasma alkaline phosphatase measurement (enzymatic activity/volume) 87 U/L 40-136 Serum or plasma aspartate aminotransferase measurement (enzymatic activity/ volume) 22 U/L 5-34 Serum or plasma alanine aminotransferase measurement (enzymatic activity/volume ) 18 U/L 0-55 Serum or plasma protein measurement (mass/volume) 7.3 g/dL 6.4-8.2 Serum or plasma albumin measurement (mass/volume) 3.9 g/dL 3.2-4.5 Lipid 1996 panel - 06/06/17 07:04 Serum or plasma triglyceride measurement (mass/volume) 144 mg/dL <150 Serum or plasma cholesterol measurement (mass/volume) 106 mg/dL < 200 Serum or plasma cholesterol in HDL measurement (mass/volume) 25 mg/ dL 40-60 Cholesterol in LDL [mass/volume] in serum or plasma by direct assay 58 mg/dL 1-129 Serum or plasma cholesterol in VLDL measurement (mass/volume) 29 mg/ dL 5-40 Methicillin resistant Staphylococcus aureus (MRSA) screening culture - 07:04 Methicillin resistant Staphylococcus aureus (MRSA) screening culture NEG NRG Capillary blood glucose measurement by glucometer (mass/volume) - 06/06/17 09: 46 Capillary blood glucose measurement by glucometer (mass/volume) 129 mg/dL 70-110 Encounters ACCT No. Visit Date/Time Discharge Status Pt. Type Provider Facility Loc./Unit Complaint [id number] 06/06/2017 06:41:00 06/06/2017 13:15:00 DIS Outpatient TED ORNELAS MD [facility] CATH ABN STRESS, SOB, HTN [id number] 05/30/2017 10:41:00 05/30/2017 23:59:59 CLS Outpatient TED ORNELAS MD [facility] CARD CAD I25.10 [id number] 05/08/2017 10:10:00 05/08/2017 23:59:59 CLS Outpatient TED ORNELAS MD [facility] CARD CAD [id number] 03/22/2016 06:46:00 03/23/2016 09:30:00 DIS Outpatient TED ORNELAS MD [facility] CHEST PAIN,CAD,HTN,HLP, DM,COPD [id number] 01/03/2016 12:01:00 01/03/2016 23:59:59 CLS Outpatient ALONSO PATTERSON DO [facility] RAD THYROID MASS, LFT THYROID LOBE [id number] 12/21/2015 09:20:00 12/21/2015 23:59:59 CLS Outpatient ALONSO PATTERSON DO [facility] RAD THYROID MASS [id number] 12/16/2015 06:55:00 12/16/2015 23:59:59 CLS Outpatient TED ORNELAS MD [facility] RAD CAD; CAROTID ARTRY STENOSIS; CHEST PAIN; HTN [id number] 11/01/2015 08:02:00 11/01/2015 23:59:59 CLS Outpatient TED RONELAS MD [facility] CARD CAD,CHEST PAIN,HTN DYSPNEA [id number] 10/29/2015 10:25:00 10/29/2015 23:59:59 CLS Outpatient TED ORNELAS MD [facility] CARD CAD,CHEST PAIN,DYSPNEA, HTN,HLP [id number] 09/30/2012 08:23:00 09/30/2012 23:59:59 CLS Outpatient EDUARD GONZALEZ [facility] RAD CAD,HTN,DYSPNEA [id number] 09/10/2012 09:23:00 Document Registration [id number] 02/20/2012 19:02:00 Document Registration [id number] 05/11/2011 06:06:00 Document Registration [id number] 04/05/2011 08:15:00 Document Registration [id number] 01/10/2011 10:17:00 Document Registration [id number] 06/03/2010 07:42:00 Document Registration
--- NOTE | 2017-12-25 06:50 | Diagnostic Imaging Report ---
EXAMINATION: Left wrist at 1113h. INDICATION: Fell wrist pain 3 views were obtained. There are no prior studies available for comparison. The lateral view reveals that there is a slightly impacted essentially nondisplaced fracture of the dorsal cortex of the distal radial metaphysis. No other fracture or acute bony abnormality is identified. 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 The soft tissues are unremarkable. IMPRESSION: There is a slightly impacted essentially nondisplaced fracture involving the dorsal cortex of the distal radial metaphysis. There is no acute bony abnormality noted otherwise. Dictated by: Dictated on workstation # [id number]
--- NOTE | 2017-12-25 06:52 | Diagnostic Imaging Report ---
EXAMINATION: Left shoulder at 1116h. INDICATION: Injury shoulder pain 3 views were obtained. There is no fracture, dislocation or acute bony abnormality evident. As noted on the prior exam of 02/20/12 there is degenerative disease of the acromioclavicular joint and there are a few soft tissue calcifications interposed between the humeral head and the undersurface of the acromion. The soft tissues are unremarkable. IMPRESSION: 1. There is no evidence for an acute bony abnormality. 2. There is degenerative disease involving the shoulder joint. 3. If there is clinical concern regarding injury to the rotator cuff or labrum, then MRI would be recommended for further evaluation. Dictated by: Dictated on workstation # [id number]
== END 2017-12-24 23:24 | disposition home or self-care (01) ==
LOC: EDUNIT# 21:21 → ER 21:23
DX: S52.592A Other fractures of lower end of left radius, initial encounter for closed fracture (principal); J44.9 Chronic obstructive pulmonary disease, unspecified; R40.2142 Coma scale, eyes open, spontaneous, at arrival to emergency department; R40.2252 Coma scale, best verbal response, oriented, at arrival to emergency department; R40.2362 Coma scale, best motor response, obeys commands, at arrival to emergency department; Z79.51 Long term (current) use of inhaled steroids; Z79.82 Long term (current) use of aspirin; Z79.84 Long term (current) use of oral hypoglycemic drugs; Z79.02 Long term (current) use of antithrombotics/antiplatelets; Z87.891 Personal history of nicotine dependence; W01.0XXA Fall on same level from slipping, tripping and stumbling without subsequent striking against object, initial encounter; Y92.009 Unspecified place in unspecified non-institutional (private) residence as the place of occurrence of the external cause
CPT/HCPCS: 29105; 73030; 73110

== ENCOUNTER 2018-04-18 13:38 | Outpatient (CLI) | payer MEDICARE ==
[~2018-04-18 13:38] MED LIST changes: +HYDR-4226 PO
== END 2018-04-18 14:15 | disposition home or self-care (01) ==
LOC: SLEEP 13:38
PROVIDERS: ATTEND Nurse Practitioner Family
DX: G47.10 Hypersomnia, unspecified (principal); J44.9 Chronic obstructive pulmonary disease, unspecified; R06.02 Shortness of breath; Z87.891 Personal history of nicotine dependence

== ENCOUNTER → 2018-04-29 | Outpatient (CLI) | payer MEDICARE ==
[~2018-04-29] MED LIST changes: +RT-ALBUTEROL SULF 2.5 MG/3 ML PRE-MIX VIAL INH ONE
--- NOTE | 2018-04-29 13:53 | Diagnostic Imaging Report ---
PROCEDURE: CT chest without contrast. TECHNIQUE: Multiple contiguous axial images were obtained through the chest without the use of intravenous contrast. INDICATION: Shortness of breath. FINDINGS: There are no previous CT chest examinations available for comparison. The plain film examination of the chest performed on 06/06/2017 failed to show any sign of an acute cardiopulmonary abnormality. On this exam, the heart size is within normal limits. There are extensive coronary artery calcifications evident. There is mild borderline aneurysmal dilatation of the ascending aorta. The aorta measures 4.0 x 4.1 cm in maximum. There is no obvious mediastinal or hilar adenopathy. The calcified nodule in the inferior pole of the left lobe of the thyroid seen on the previous CTA neck exam of 12/16/2015 is again visualized and no different. The lungs are clear. There is no evidence for failure, pneumonia, or for pleural effusion to suggest an acute abnormality. There is a small 4 mm noncalcified subpleural nodule along the posterior aspect of the right midlung. I do suspect that this is a benign process. The sections through the upper abdomen fail to show any sign of an acute abnormality. The gallbladder is distended but there is no sign of cholelithiasis. The gallbladder was not visualized in its entirety, however. If further study of the gallbladder is desired, then ultrasound would be recommended. There is no obvious breast mass. The bone windows are unremarkable for fracture or for destructive lesion. IMPRESSION: 1. There is no evidence for an acute cardiopulmonary abnormality. 2. The heart is not enlarged but there are extensive coronary artery calcifications evident. There is also borderline aneurysmal dilatation of the ascending aorta. 3. The small nodular density along the posterior aspect of the right midlung is most likely a benign process. Unless there are previous exams available to demonstrate that this finding is stable however, then a six-month followup CT chest exam should be obtained. 4. The gallbladder is distended. Additional considerations, as above. Dictated by: Dictated on workstation # [id number]
== END ==
LOC: RAD 11:00
PROVIDERS: ATTEND Nurse Practitioner Family
DX: J44.9 Chronic obstructive pulmonary disease, unspecified (principal); I25.10 Atherosclerotic heart disease of native coronary artery without angina pectoris; R91.8 Other nonspecific abnormal finding of lung field; G47.10 Hypersomnia, unspecified; R29.818 Other symptoms and signs involving the nervous system; Z87.891 Personal history of nicotine dependence
CPT/HCPCS: 71250; 94060; 94726; 94729

== ENCOUNTER → 2018-05-09 | Outpatient (CLI) | payer MEDICARE ==
[~2018-05-09] MED LIST changes: -RT-ALBUTEROL SULF 2.5 MG/3 ML PRE-MIX VIAL INH ONE
--- NOTE | 2018-05-09 08:50 | Diagnostic Imaging Report ---
PROCEDURE: US Gallbladder. TECHNIQUE: Multiple real-time grayscale images were obtained over the right upper quadrant in various projections. INDICATION: Distended gallbladder. The liver is enlarged at 21.8 cm. No discrete liver mass is identified. The gallbladder is slightly distended at 9.3 x 6.3 x 4.7 cm. There appears to be small stones in the gallbladder, however, gallbladder wall thickness is normal. No pericholecystic fluid or biliary ductal dilatation is seen. The pancreas and right kidney are unremarkable apart from a 17 mm cyst involving the right kidney. There is no ascites. IMPRESSION: Mild gallbladder hydrops and cholelithiasis. There is no definite evidence of acute cholecystitis. Dictated by: Dictated on workstation # [id number]
== END ==
LOC: RAD 07:30
PROVIDERS: ATTEND Family Medicine
DX: K82.1 Hydrops of gallbladder (principal); K80.20 Calculus of gallbladder without cholecystitis without obstruction
CPT/HCPCS: 76705

== ENCOUNTER → 2018-09-12 | Outpatient (CLI) | payer MEDICARE, OTHER ==
[2018-09-12 22:42] LABS: AMPHETAMINES URINE QUAL DS Negative; BARBITURATES URINE QUAL DS Negative; BENZODIAZEPINE URINE QUAL DS Positive
== END ==
LOC: LAB 09:29
PROVIDERS: ATTEND Family Medicine
DX: Z51.81 Encounter for therapeutic drug level monitoring (principal); Z79.891 Long term (current) use of opiate analgesic
CPT/HCPCS: 36415; 80307

== ENCOUNTER → 2018-10-22 | Outpatient (CLI) | payer MEDICARE ==
--- NOTE | 2018-10-22 11:43 | Diagnostic Imaging Report ---
PROCEDURE: CT chest without contrast. TECHNIQUE: Multiple contiguous axial images were obtained through the chest without the use of intravenous contrast. Auto Exposure Controls were utilized during the CT exam to meet ALARA standards for radiation dose reduction. INDICATION: Dyspnea, shortness of breath. FINDINGS: The previous CT chest exam performed on 04/29/2018 noted coronary artery disease as well as borderline aneurysmal dilatation of the ascending aorta. Those findings are again evident and do not seem to have changed. The heart does appear to be somewhat larger in size than noted on the prior exam. The lungs remain generally clear. There is no sign of failure, pneumonia, or pleural effusion to indicate an acute abnormality. The previous study did show a small 4 mm parenchymal density along the posterior aspect of the right midlung. That finding is again evident and no different (image 29/59). No new parenchymal nodule has developed. There is no obvious mediastinal or hilar adenopathy. The calcified nodule in the inferior pole of the left lobe of the thyroid seen previously appears stable. There is no obvious breast mass. The sections through the upper abdomen failed to show any evidence for an acute abnormality. The bone windows are unremarkable for fracture or for destructive lesion. IMPRESSION: 1. There is no evidence for an acute cardiopulmonary abnormality. 2. The coronary artery calcifications, the borderline aneurysmal dilatation of the ascending aorta, and small nodular density along the posterior aspect of the right lung all appear stable when compared to the prior study. 3. The heart is mildly enlarged. Dictated by: Dictated on workstation # [id number]
== END ==
LOC: RAD 07:21
PROVIDERS: ATTEND Nurse Practitioner Family
DX: J44.9 Chronic obstructive pulmonary disease, unspecified (principal); R06.02 Shortness of breath; G47.33 Obstructive sleep apnea (adult) (pediatric); R91.1 Solitary pulmonary nodule; Z87.891 Personal history of nicotine dependence
CPT/HCPCS: 71250

== ENCOUNTER → 2019-02-25 | Outpatient (CLI) | payer MEDICARE ==
[2019-02-25 07:41] LABS: HEMATOCRIT 35 % (35-52); HEMOGLOBIN 10.9 G/DL (11.5-16.0); MEAN CORPUSCULAR HEMOGLOBIN 21 PG (25-34); MEAN CORPUSCULAR HGB CONC 31 G/DL (32-36); MEAN CORPUSCULAR VOLUME 69 FL (80-99); MEAN PLATELET VOLUME 9.2 FL (7.4-10.4); PLATELET COUNT 558 10^3/uL (130-400); WHITE BLOOD COUNT 10.5 10^3/uL (4.3-11.0)
== END ==
LOC: LAB 07:10
PROVIDERS: ATTEND Family Medicine
DX: D64.9 Anemia, unspecified (principal)
CPT/HCPCS: 36415; 85027

== ENCOUNTER → 2019-04-22 | Outpatient (CLI) | payer MEDICARE, OTHER ==
[2019-04-22 09:58] LABS: CREATININE SERUM 1.27 MG/DL (0.60-1.30)
--- NOTE | 2019-04-22 11:36 | Diagnostic Imaging Report ---
PROCEDURE: CT chest without contrast. TECHNIQUE: Multiple contiguous axial images were obtained through the chest without the use of intravenous contrast. Auto Exposure Controls were utilized during the CT exam to meet ALARA standards for radiation dose reduction. INDICATION: Dyspnea, shortness of air. CORRELATION STUDY: CT chest of 10/22/2018. FINDINGS: A partially exophytic calcified mass off the inferior pole of the left lobe thyroid gland extends in the retrosternal region, 2.2 x 1.8 x 2.1 cm. There also appears to be a slightly hyperdense nodule off the inferior pole of the right lobe, 1.5 cm. A few scattered mildly prominent bilateral axillary lymph nodes. Heart size is enlarged with rather extensive coronary artery calcification. Slight enlargement of the ascending aorta is relatively stable, 4.4 cm in maximum size. Dense calcifications of the descending thoracic aorta. A small nodule in the superior segment of the right lower lobe appears generally stable, 5 mm in size (image 77 series 4). Multiple small gallstones are present. There is compression deformity of lower thoracic vertebral bodies. This is new at the T12 level with slight loss of height superiorly. IMPRESSION: 1. Negative for acute abnormality of the chest. 2. Cardiac enlargement with rather significant coronary artery calcification. 3. There is mild compression deformity of the superior T12 endplate. While age is indeterminate, is changed from previous study suggestive of an [id number] process. Clinical correlation recommended. If further imaging evaluation is desired, MRI would be recommended. Dictated by: Dictated on workstation # [id number]
== END ==
LOC: RAD 09:08
PROVIDERS: ATTEND Nurse Practitioner Family
DX: J44.9 Chronic obstructive pulmonary disease, unspecified (principal); R91.8 Other nonspecific abnormal finding of lung field
CPT/HCPCS: 36415; 71250; 82565; 84520

== ENCOUNTER → 2021-03-08 | Outpatient (CLI) | payer MEDICARE ==
[~2021-03-08] MED LIST changes: -GLIM2TAB PO; +GLIM2TAB4 PO; -TRAM50TA2 PO; -TRAZ-190 PO; +TRAZ-227 PO; +TRM50T PO
== END ==
LOC: CARD 11:00
PROVIDERS: ATTEND Physician Assistant
DX: I08.0 Rheumatic disorders of both mitral and aortic valves (principal); I11.9 Hypertensive heart disease without heart failure; I25.10 Atherosclerotic heart disease of native coronary artery without angina pectoris
CPT/HCPCS: 93306

== ENCOUNTER → 2021-04-11 | Outpatient (CLI) | payer MEDICARE ==
[~2021-04-11] VITALS: Ht 167 cm; Wt 88.0 kg
[~2021-04-11] MED LIST changes: +CATHETER FLUSH 10 ML SYR IV PRN; +REGADENOSON 0.4 MG/5 ML SYR (LEXISCAN) IV ONE
[2021-04-11 09:16] VITALS: BP 142/52
--- NOTE | 2021-04-11 12:10 | Cardiology Stress Test Report ---
Stress Test Report Date of Procedure/Referring: Date of Procedure: Apr 11, 2021 Lisa Davila Admitting Physician Brando London DO Indications: Coronary artery disease Baseline Heart Rate: 71 Baseline Blood Pressure: Blood Pressure Systolic: 142 Blood Pressure Diastolic: 52 Baseline Vitals Vital Signs Date Time Temp Pulse Resp B/P (MAP) Pulse Ox O2 Delivery O2 Flow Rate FiO2 04/11/21 09:16 81 19 142/52 (82) 99 Room Air Baseline EKG: Baseline EKG: NSR Summary After explaining the procedure to the patient, she signed a consent and then brought to the stress nuclear laboratory. Patient received 0.4 mg Lexiscan for stress test, ECG, heart rate and blood pressure were monitored continuously. Resting and stress dose of radio tracer were injected, imaging was acquired and reviewed in short axis, horizontal long axis and vertical long axis views. TID: 0.9 SSS: 8 SDS: 2 EF: 76 1. Patient tolerated Lexiscan well 2. Breast attenuation with decreased uptake involving the mid to apical ante rior wall and anterolateral wall with mild reversibility 3. Normal left ventricular size, EF 76% TED ORNELAS MD Apr 11, 2021 12:10
== END ==
LOC: CARD 07:45
PROVIDERS: ATTEND Physician Assistant
DX: I25.10 Atherosclerotic heart disease of native coronary artery without angina pectoris (principal)
CPT/HCPCS: 78452; 93017; A9502

== ENCOUNTER 2021-04-18 09:00 | Day surgery (SDC) | payer MEDICARE ==
[2021-04-18] VITALS (11 sets, daily range): BP systolic 120–156; BP diastolic 50–70
[~2021-04-18] VITALS: Ht 165.1 cm; Wt 88.4 kg
[2021-04-18 07:39] LABS: HEMATOCRIT 46 % (35-52); HEMOGLOBIN 15.4 g/dL (11.5-16.0); MEAN CORPUSCULAR HEMOGLOBIN 30 pg (25-34); MEAN CORPUSCULAR HGB CONC 33 g/dL (32-36); MEAN CORPUSCULAR VOLUME 92 fL (80-99); MEAN PLATELET VOLUME 9.1 fL (9.0-12.2); PLATELET COUNT 413 10^3/uL (130-400); WHITE BLOOD COUNT 11.4 10^3/uL (4.3-11.0)
[2021-04-18 07:49] LABS: PROTHROMBIN TIME PATIENT 13.6 SEC (12.2-14.7)
--- NOTE | 2021-04-18 07:56 | Diagnostic Imaging Report ---
INDICATION: Heart disease. Comparison made with prior examination of 06/06/2017. FINDINGS: There is mild cardiomegaly. Lungs are clear. No pleural effusion or pneumothorax. Mediastinum is unremarkable. IMPRESSION: No acute cardiopulmonary abnormality. Mild cardiomegaly. Dictated by: Dictated on workstation # [id number]
--- NOTE | 2021-04-18 07:56 | Conscious Sedation/ASA ---
Conscious Sedation Pre-Proced Time 07:56 ASA Score 3 For ASA 3 and 4: Consider anesthesia and medical clearance. Also, for patients with a history of failed moderate sedation consider anesthesia. Airway Lungs Heart ASA score ASA 1: a normal healthy patient ASA 2: a patient with a mild systemic disease (mid diabetes, controlled hypertension, obesity x ASA 3: a patient with a severe systemic disease that limits activity (angina, COPD, prior Myocardial infarction) ASA 4: a patient with an incapacitating disease that is a constant threat to life (CHF, renal failure) ASA 5: a moribund patient not expected to survive 24 hrs. (ruptured aneurysm) ASA 6: a declared brain- patient whose organs are being harvested. For emergent operations, add the letter E after the classification Mallampati Classification Grade 3 Sedation Plan Analgesia, Amnesia, Plan communicated to team members, Discussed options with patient/fam, Discussed risks with patient/fam The patient is an appropriate candidate to undergo the planned procedure, sedation, and anesthesia. The patient immediately re-assessed prior to indication. TED ORNELAS MD Apr 18, 2021 07:56
[2021-04-18 07:58] LABS: BILIRUBIN,TOTAL 0.3 MG/DL (0.1-1.0); CALCIUM 9.5 MG/DL (8.5-10.1); CREATININE SERUM 1.64 MG/DL (0.60-1.30); POTASSIUM 4.2 MMOL/L (3.6-5.0); TOTAL PROTEIN 7.3 GM/DL (6.4-8.2)
[~2021-04-18 09:00] MED LIST changes: +ACHD5005 PO; -CATHETER FLUSH 10 ML SYR IV PRN; +CITA40TA13 PO; +EMPA25TA PO; +FERR325T24 PO; +GLIP10TA13 PO; +HEParin (CATH LAB) 2,000 ML IV ONE; +HEParin 1000 UNIT/ML (10ML VIAL) FOR BOLUS ONE; +LIDOCAINE 1% INJ 20 ML 20 ML VIAL ONE; +LISI5TAB20 PO; +METF-397 PO; +METO50TA15 PO; +MIDAZOLAM 5 MG/5 ML (VERSED) VIAL ONE; +NAPR220C11 PO; +NITRO DRIP 25000 MCG/D5W 0 ML IV ONE; +NS IV 1000 ML 1,000 ML IV SCH; +NS IV 1000 ML 1,000 ML ONE; +OLME5TAB6 PO; -REGADENOSON 0.4 MG/5 ML SYR (LEXISCAN) IV ONE; +fentaNYL INJ 100 MCG/2 ML AMP ONE
[2021-04-18] MEDS ORDERED: CLOPIDOGREL 300 MG (PLAVIX) TABLET PO ONE (09:07)
[2021-04-18] MEDS ORDERED: ASPIRIN 325 MG (5 GR) TABLET ONE (09:07)
--- NOTE | 2021-04-18 09:13 | Cardiac Cath Report ---
Cardiac Cath Report Physician (s)/Customer Service Rep (s) Physician TED ORNELAS MD Pre-Procedure Diagnosis Pre-Procedure Diagnosis: Coronary artery disease Post-Procedure Note Procedure Start Date: Apr 18, 2021 Name of Procedure: Coronary artery disease Stenting to the LAD Findings/Procedure Note PROCEDURE NOTE: 80 years old lady with history of coronary artery disease multiple intervention, had an abnormal stress test, scheduled for cardiac catheterization possible PTCA. After explaining the procedure to the patient, all pros and cons were explained, all questions were answered. The patient signed the consent and then she was placed on the cardiac catheterization laboratory. Groin was prepped SL fashion local anesthesia was used. Sheath placed in the right femoral artery. David right and left catheter were used to access the coronary system. Pigtail was used to access the left ventricular cavity. Left ventriculogram was not done Patient has severe stenosis in the proximal LAD, 6 [place] 4.0 guide was advanced to the left coronary system, 6000 units of heparin were given, BMW wire was advanced and parked distally then primary stenting using skypoint stent 3.5 x 23 mm deployed under 14 denita which expanded to 3.63 mm with excellent results. At the end of the procedure the sheath was removed. Closure device was deployed FINDINGS: Hemodynamics LV 118/12, end-diastolic pressure of 12 Aorta 123/49 mean of 78 ANATOMY: Left Main is free of obstructive disease Left Anterior Descending has severe stenosis proximally, the overlapping stents were patent beyond the stent there is an area of 60% stenosis, successful primary stenting using kevin point stent 3.5 x 23 mm to the proximal LAD overlapping with the previous stent expanded to 3.63 mm with excellent results Left Circumflex is moderate in size with moderate to severe stenosis at the distal circumflex artery Right Coronary Artery is a small artery nondominant artery with severe stenosis at the midportion, not amendable to intervention LV Gram was not done, pressure was measured CONCLUSION: 1. Severe proximal LAD stenosis with successful deployment of kevin point stent 3.5 x 23 mm to the proximal LAD overlapping with the previous 2 stents in the mid LAD, beyond the stent there is an area of moderate to severe stenosis, borderline lesion which will be monitored. 2. Moderate to severe stenosis in the distal circumflex artery, will continue to monitor 3. Severe stenosis at the mid right coronary artery, small artery, nondominant. DISCUSSION AND RECOMMENDATION: We will continue on aspirin and Plavix, continue to maximize medical therapy and monitor closely, I can consider reevaluation in the future and possible stenting of the distal circumflex artery. Regarding the right coronary artery is a small nondominant artery about 1.5 mm. I recommend conservative management for now. Anesthesia Type: Conscious Sedation Estimated blood loss (mL): 30 ml Contrast Amount: 46 ml Total Radiation Dose: 674 mGy Post-Procedure Diagnosis Post-operative diagnosis: Chest pain Coronary artery disease Hyperlipidemia Hypertension TED ORNELAS MD Apr 18, 2021 09:13
[2021-04-18] MEDS ORDERED: NS IV 1000 ML 1,000 ML IV SCH (09:15)
[2021-04-18] MEDS ORDERED: PATIENT MAY USE OWN MEDS, ALL PO SCH (09:15)
[2021-04-18] MEDS ORDERED: EMPA25TA PO (09:55)
[2021-04-18] MEDS ORDERED: METF-397 PO (09:55)
--- NOTE | 2021-04-18 09:55 | Discharge Inst-Post CATH ---
Discharge Inst-CATH/EP Problems Reviewed?: Yes Post Cardiac Cath/EP D/C Inst Follow Up/Plan Hold Metformin for [address] August's office in 2 to 4 weeks <b>CARDIAC CATH/EP PROCEDURE DISCHARGE INSTRUCTIONS</b> ACTIVITY * Go Home directly and rest. * Limit activity of the leg (or wrist if it was used) for 7 days including aerobics, swimming, jogging, bicycling, etc. * Restrict stair-climbing for 7 days if possible, if not, climb up with your non-cath leg, then bring together on the same step. * Avoid lifting, pushing, pulling or excessive movement of the affected extremity for 7 days. * Customary sexual activity may be resumed after 2 days-use caution not to use a position that strains or causes pain to the affected extremity. * No driving for 24 hours. * NO SMOKING. * Avoid straining for bowel movements for 7 days. * Gentle walking on level ground is allowed. * Returning to work will depend on the type of procedure and the results. Your doctor will discuss this with you. CALL YOUR DOCTOR FOR ANY OF THE FOLLOWING: *If bleeding from the puncture site occurs- Apply gentle pressure to site with clean cloth and call your doctor or EMS. * If a knot or lump forms under the skin, increases in size, or causes pain. * If bruising appears to be worsening or moving further down your leg instead of disappearing. * Temperature above 101 F. CARE OF YOUR GROIN INCISION; * Bruising or purple discoloration of the skin near the puncture site is common. * You may shower only, no bathtub bathing for 5 days. Be careful to avoid slipping as your leg may feel stiff. * If a closure device was used on your femoral artery, please see the attached guide regarding care of the device and your leg. * Leave dressing on FOR 24 hours. CARE OF YOUR WRIST INCISION; * Bruising or purple discoloration of the skin near the puncture site is common. * You may shower. * DO NOT submerge wrist. * Leave dressing on FOR 24 hours. TED AUGUST MD Apr 18, 2021 09:55
--- NOTE | 2021-04-18 15:33 | Tele-ICU Progress Note ---
Progress Note Video assessment done , Hemodynamically stable Available charting reviewed NO TELE-ICU CONSULT REQUESTED CONTINUE TO MONITOR PER USUAL TELE-ICU PROTOCOL No need for Tele-ICU interventions Plans as delineated by bedside physicians / consultants Focused Exam Height, Weight, BMI Height: 5'4.00" Weight: 195lbs. 7.0oz. 88.466342qy; 32.43 BMI Method:Stated EDILSON CARDOZO MD Apr 18, 2021 15:33
[2021-04-19] MEDS ORDERED: CLOPIDOGREL 75 MG (PLAVIX) TABLET PO SCH (09:00)
[2021-04-19] MEDS ORDERED: ASPIRIN E.C. 81 MG (ECOTRIN) TAB PO SCH (09:00)
== END 2021-04-18 16:50 ==
LOC: CATH 09:00 → ICU 09:30 → CATH 16:50
PROVIDERS: ATTEND Internal Medicine Cardiovascular Disease
DX: I25.10 Atherosclerotic heart disease of native coronary artery without angina pectoris (principal); E78.5 Hyperlipidemia, unspecified; I10 Essential (primary) hypertension; E11.9 Type 2 diabetes mellitus without complications; J44.9 Chronic obstructive pulmonary disease, unspecified; I65.23 Occlusion and stenosis of bilateral carotid arteries; R60.0 Localized edema; Z79.82 Long term (current) use of aspirin; Z79.02 Long term (current) use of antithrombotics/antiplatelets; Z79.899 Other long term (current) drug therapy; Z79.84 Long term (current) use of oral hypoglycemic drugs; Z79.891 Long term (current) use of opiate analgesic; Z87.891 Personal history of nicotine dependence; Z95.5 Presence of coronary angioplasty implant and graft
CPT/HCPCS: 71045; 80053; 80061; 82947; 85027; 85610; 85730; 87081; 93458; C1760; C1769; C1874; C1887 ×2; C1894; C9600; 36415

== ENCOUNTER → 2021-05-17 | Outpatient (CLI) | payer MEDICARE ==
[~2021-05-17] MED LIST changes: -HEParin (CATH LAB) 2,000 ML IV ONE; -HEParin 1000 UNIT/ML (10ML VIAL) FOR BOLUS ONE; -LIDOCAINE 1% INJ 20 ML 20 ML VIAL ONE; -MIDAZOLAM 5 MG/5 ML (VERSED) VIAL ONE; -NITRO DRIP 25000 MCG/D5W 0 ML IV ONE; -NS IV 1000 ML 1,000 ML IV SCH; -NS IV 1000 ML 1,000 ML ONE; -fentaNYL INJ 100 MCG/2 ML AMP ONE
== END ==
LOC: CARD 09:15
PROVIDERS: ATTEND Family Medicine
DX: I49.9 Cardiac arrhythmia, unspecified (principal)
CPT/HCPCS: 93005

== ENCOUNTER → 2021-05-17 | Outpatient (CLI) | payer MEDICARE | LOC: CARD 13:45 | PROVIDERS: ATTEND Physician Assistant | DX: I49.9 Cardiac arrhythmia, unspecified (principal) | CPT/HCPCS: 93225; 93226 ==

== ENCOUNTER → 2022-10-18 | Outpatient (CLI) | payer MEDICARE ==
[~2022-10-18] VITALS: Ht 170 cm; Wt 86.0 kg
[~2022-10-18] MED LIST changes: +CATHETER FLUSH 10 ML SYR IVP PRN; +OLME5TAB29 PO; -OLME5TAB6 PO; +REGADENOSON 0.4 MG/5 ML SYR (LEXISCAN) IV ONE
[2022-10-18 09:04] VITALS: BP 139/64
--- NOTE | 2022-10-18 11:11 | Cardiology Stress Test Report ---
Stress Test Report Date of Procedure/Referring: Date of Procedure: October 18, 2022 PCP Brando London DO Admitting Physician Admitting Physician: Attending Physician: Lisa Carrillo Indications: A Fib Baseline Heart Rate: 72 Baseline Blood Pressure: Blood Pressure Systolic: 139 Blood Pressure Diastolic: 64 Baseline Vitals Vital Signs Date Time Temp Pulse Resp B/P (MAP) Pulse Ox O2 Delivery O2 Flow Rate FiO2 10/18/22 09:04 72 139/64 (89) Baseline EKG: Baseline EKG: NSR Summary After explaining the procedure to the patient, she signed a consent and then brought to the stress nuclear laboratory. Patient received 0.4 mg Lexiscan for stress test, ECG, heart rate and blood pressure were monitored continuously. Resting and stress dose of radio tracer were injected, imaging was acquired and reviewed in short axis, horizontal long axis and vertical long axis views. TID: 1.29 SSS: 8 SDS: 7 EF: 61 Patient tolerated Lexiscan well Reversible ischemia involving the anterior wall and anteroseptum Transient ischemic dilatation 1.29 Normal left ventricular size, ejection fraction 61% Copy Copies To 1: BRANDO LONDON BASHAR J MD October 18, 2022 11:11
== END ==
LOC: CARD 07:30
PROVIDERS: ATTEND Physician Assistant
DX: I48.91 Unspecified atrial fibrillation (principal)
CPT/HCPCS: 78452; 93017; A9502

== ENCOUNTER 2022-10-25 13:00 | Day surgery (SDC) | payer MEDICARE ==
[~2022-10-25] VITALS: Ht 165.1 cm; Wt 89.0 kg
[2022-10-25] VITALS (14 sets, daily range): BP systolic 124–160; BP diastolic 51–85
[2022-10-25 11:10] LABS: HEMATOCRIT 47 % (35-52); HEMOGLOBIN 16.2 g/dL (11.5-16.0); MEAN CORPUSCULAR HEMOGLOBIN 32 pg (25-34); MEAN CORPUSCULAR HGB CONC 35 g/dL (32-36); MEAN CORPUSCULAR VOLUME 91 fL (80-99); MEAN PLATELET VOLUME 9.5 fL (9.0-12.2); PLATELET COUNT 352 10^3/uL (130-400); WHITE BLOOD COUNT 12.1 10^3/uL (4.3-11.0)
[2022-10-25 11:13] LABS: BILIRUBIN,URINE NEGATIVE (NEGATIVE); CLARITY,URINE CLEAR; COLOR,URINE YELLOW; GLUCOSE, URINE (UA) 3+ (NEGATIVE); KETONES,URINE NEGATIVE (NEGATIVE); LEUKOCYTE ESTERASE ,URINE NEGATIVE (NEGATIVE); NITRITE,URINE NEGATIVE (NEGATIVE); PH,URINE 6.5 (5-9); PROTEIN,URINE 3+ (NEGATIVE)
--- NOTE | 2022-10-25 11:20 | Diagnostic Imaging Report ---
INDICATION: Coronary artery disease, assessment prior to heart catheterization. TECHNIQUE: Single view chest, 10:54 a.m. CORRELATION STUDY: 04/18/2021. FINDINGS: Heart size and mediastinum are enlarged and prominent. Vasculature is within normal limits. The lungs are clear with no consolidating infiltrate. There is no significant effusion or pneumothorax. IMPRESSION: 1. Generally stable severity cardiac enlargement without overt failure. Dictated by: Dictated on workstation # [id number]
[2022-10-25 11:23] LABS: INR 0.9 (0.8-1.4); PROTHROMBIN TIME PATIENT 12.6 SEC (12.2-14.7)
[2022-10-25 11:25] LABS: AMORPHOUS SEDIMENT,UR RARE AMOR URATES /LPF; BACTERIA,URINE FEW /HPF; WBC,URINE RARE /HPF
[2022-10-25 11:30] LABS: BILIRUBIN,TOTAL 0.4 MG/DL (0.1-1.0); CALCIUM 8.6 MG/DL (8.5-10.1); CREATININE SERUM 1.66 MG/DL (0.60-1.30); POTASSIUM 3.8 MMOL/L (3.6-5.0); TOTAL PROTEIN 5.8 GM/DL (6.4-8.2)
[~2022-10-25 13:00] MED LIST changes: +APIX2.5T PO; +ASPI-999 PO; -CATHETER FLUSH 10 ML SYR IVP PRN; +FURO20TA4 PO; +HEParin (CATH LAB) 2,000 ML IV ONE; +LIDOCAINE 1% INJ 20 ML VIAL ONE; +NS IV 1000 ML 1,000 ML IV SCH; +NS IV 1000 ML 1,000 ML ONE; -REGADENOSON 0.4 MG/5 ML SYR (LEXISCAN) IV ONE
--- NOTE | 2022-10-25 13:14 | Cardiac Procedure Note-CS/ASA ---
Pre-Procedure Note Pre-Op Procedure Note Date of Available H&P: Oct 19, 2022 Date H&P Reviewed: Oct 25, 2022 Time H&P Reviewed: 13:13 History & Physical: H&P Reviewed, Patient Examed, No changes noted Pre-Operative Diagnosis: Coronary artery disease Moderate Sedation PreProcedure Time 13:14 ASA Score 3 Airway Lungs Heart ASA score ASA 1: a normal healthy patient ASA 2: a patient with a mild systemic disease (mid diabetes, controlled hypertension, obesity ASA 3: a patient with a severe systemic disease that limits activity (angina, COPD, prior Myocardial infarction) ASA 4: a patient with an incapacitating disease that is a constant threat to life (CHF, renal failure) ASA 5: a moribund patient not expected to survive 24 hrs. (ruptured aneurysm) ASA 6: a declared brain- patient whose organs are being harvested. For emergent operations, add the letter E after the classification Mallampati Classification Grade 3 Sedation Plan Analgesia, Amnesia, Plan communicated to team members, Discussed options with patient/fam, Discussed risks with patient/fam The patient is an appropriate candidate to undergo the planned procedure, sedation, and anesthesia. The patient immediately re-assessed prior to indication. TED ORNELAS MD Oct 25, 2022 13:14
[2022-10-25] MEDS ORDERED: NITRO DRIP 25000 MCG/D5W 250 ML IV ONE (13:49)
[2022-10-25] MEDS ORDERED: HEParin 1000 UNIT/ML (10ML VIAL) FOR BOLUS ONE (13:49)
[2022-10-25] MEDS ORDERED: MIDAZOLAM 5 MG/5 ML (VERSED) VIAL ONE (13:49)
[2022-10-25] MEDS ORDERED: VERAPAMIL 5 MG/2 ML (CALAN) VIAL IV ONE (13:49)
[2022-10-25] MEDS ORDERED: fentaNYL INJ 100 MCG/2 ML AMP ONE (13:49)
[2022-10-25] MEDS ORDERED: ASPIRIN 325 MG (5 GR) TABLET ONE (15:12)
[2022-10-25] MEDS ORDERED: CLOPIDOGREL 300 MG (PLAVIX) TABLET PO ONE (15:12)
--- NOTE | 2022-10-25 15:12 | Cardiac Cath Report ---
Cardiac Cath Report Physician (s)/Data Consultant (s) Physician TED ORNELAS MD Pre-Procedure Diagnosis Pre-Procedure Diagnosis: Coronary artery disease Post-Procedure Note Procedure Start Date: Oct 25, 2022 Name of Procedure: Left heart catheterization IFR to the LAD Stenting to the LAD Findings/Procedure Note PROCEDURE NOTE: 82-year-old lady with extensive coronary artery disease multiple intervention in the past, had an abnormal stress test, scheduled for cardiac catheterization possible PTCA. After explaining the procedure to the patient, all pros and cons were explained, all questions were answered. The patient signed the consent and then she was placed in the cardiac catheterization laboratory. Groin was prepped in SL fashion local anesthesia was used. Sheath placed in the right radial artery, [place] catheter was advanced, engage the right and left coronary system, multiple views were obtained. Patient had 70 to 80% at the mid to distal LAD following the previously placed stent. She was given a total of 6000 units of heparin, EBU 3.5 guide was used, IFR wire was advanced to the distal LAD and IFR at the distal was 0.87. Pulled back to the mid LAD and it was 0.94. I proceeded with primary stenting using 2.5 x 18 mm Skypoint stent postdilated with noncompliant 3 x 15 balloon. IFR post intervention was 0.90. I was satisfied with the results with minimal use of contrast. The guide was prolapsed to the left ventricular cavity, pressure was measured, pullback LV to aorta was done. At the end of the procedure the sheath was removed. Vascular band was used FINDINGS: Hemodynamics LV 181/21, end-diastolic pressure of 21 Aorta 182/68 with a mean of 113 ANATOMY: Left Main has no obstructive disease Left Anterior Descending has patent stent in the proximal and mid LAD followed by 70 to 80% stenosis, IFR was 0.87 successful primary stenting using Skypoint 2.5 x 18 mm post deployment IFR was 0.90. Left Circumflex is moderate in size with no obstructive disease, dominant artery Right Coronary Artery has 95% stenosis at the midportion, nondominant artery, very small artery, less than 1.5 mm, not amendable to intervention LV Gram was not done, pressure was measured PERCUTANEOUS INTERVENTION: Pre stenosis 80% Post Stenosis 0% Pre AMBER flow 2 Post AMBER flow 3 Dominance left circumflex CONCLUSION: 80% stenosis in the mid to distal LAD successful primary stenting using Skypoint 2.5 x 18 mm postdilated to 3 mm with 0% residual stenosis Severe stenosis at multiple segment and a small nondominant right coronary artery less than 1.5 mm not amendable to intervention No obstructive disease in the circumflex artery Mildly elevated left ventricular end-diastolic pressure DISCUSSION AND RECOMMENDATION: Continue to maximize medical therapy. Restarting aspirin and loading with Plavix and continue with Eliquis Anesthesia Type: Conscious Sedation Estimated blood loss (mL): 20 ml Contrast Amount: 32 ml Total Radiation Dose: 367 mGy Post-Procedure Diagnosis Post-operative diagnosis: Chest pain Coronary artery disease Hypertension Hyperlipidemia TED ORNELAS MD Oct 25, 2022 15:11
[2022-10-25] MEDS ORDERED: NS IV 1000 ML 1,000 ML IV SCH (15:15)
[2022-10-25] MEDS ORDERED: HYDROcodone/APAP 5 MG/325 MG (LORTAB) TAB PO PRN (15:15)
[2022-10-25] MEDS ORDERED: PATIENT MAY USE OWN MEDS, ALL PO SCH (15:15)
[2022-10-25] MEDS ORDERED: CLOP75TA28 PO (15:34)
--- NOTE | 2022-10-25 15:34 | Discharge Inst-Post CATH ---
Discharge Inst-CATH/EP Problems Reviewed?: Yes Post Cardiac Cath/EP D/C Inst Follow Up/Plan Appointment with Dr. August's office in 2 to 4 weeks <b>CARDIAC CATH/EP PROCEDURE DISCHARGE INSTRUCTIONS</b> ACTIVITY * Go Home directly and rest. * Limit activity of the leg (or wrist if it was used) for 7 days including aer obics, swimming, jogging, bicycling, etc. * Restrict stair-climbing for 7 days if possible, if not, climb up with your non-cath leg, then bring together on the same step. * Avoid lifting, pushing, pulling or excessive movement of the affected extremi ty for 7 days. * Customary sexual activity may be resumed after 2 days-use caution not to use a position that strains or causes pain to the affected extremity. * No driving for 24 hours. * NO SMOKING. * Avoid straining for bowel movements for 7 days. * Gentle walking on level ground is allowed. * Returning to work will depend on the type of procedure and the results. Your doctor will discuss this with you. CALL YOUR DOCTOR FOR ANY OF THE FOLLOWING: *If bleeding from the puncture site occurs- Apply gentle pressure to site with clean cloth and call your doctor or EMS. * If a knot or lump forms under the skin, increases in size, or causes pain. * If bruising appears to be worsening or moving further down your leg instead of disappearing. * Temperature above 101 F. CARE OF YOUR GROIN INCISION; * Bruising or purple discoloration of the skin near the puncture site is common. * You may shower only, no bathtub bathing for 5 days. Be careful to avoid slipping as your leg may feel stiff. * If a closure device was used on your femoral artery, please see the attached guide regarding care of the device and your leg. * Leave dressing on FOR 24 hours. CARE OF YOUR WRIST INCISION; * Bruising or purple discoloration of the skin near the puncture site is common. * You may shower. * DO NOT submerge wrist. * Leave dressing on FOR 24 hours. TED AUGUST MD Oct 25, 2022 15:34
[2022-10-25] MEDS ORDERED: NON-FORMULARY MEDICATION 1 EA EA (Glipizide 10 MG) PO SCH (21:00)
[2022-10-25] MEDS ORDERED: traZODone 100 MG (DESYREL) TAB PO SCH (21:00)
[2022-10-25] MEDS ORDERED: ALPRAZolam 0.25 MG (XANAX) TAB PO PRN (21:00)
[2022-10-25] MEDS ORDERED: meTOprolol TARTRATE 50 MG (LOPRESSOR) TAB PO SCH (21:00)
[2022-10-25] MEDS ORDERED: NON-FORMULARY MEDICATION 1 EA EA (Simvastatin 10 MG) PO SCH (21:00)
[2022-10-25] MEDS ORDERED: APIXABAN 2.5 MG (ELIQUIS) TABLET PO SCH (21:00)
[2022-10-25] MEDS ORDERED: AtorvaSTATin TABLET 10 MG TABLET PO SCH (21:00)
[2022-10-26] MEDS ORDERED: EMPAGLIFLOZIN 10 MG TABLET (JARDIANCE) PO SCH (07:00)
[2022-10-26] MEDS ORDERED: NON-FORMULARY MEDICATION 1 EA EA (Empagliflozin (Jardiance) 25 MG) PO SCH (09:00)
[2022-10-26] MEDS ORDERED: CLOPIDOGREL 75 MG (PLAVIX) TABLET PO SCH ×2 (09:00)
[2022-10-26] MEDS ORDERED: ASPIRIN 81 MG CHEW (CHILDREN'S ASA) PO SCH (09:00)
[2022-10-26] MEDS ORDERED: ASPIRIN E.C. 81 MG (ECOTRIN) TAB PO SCH (09:00)
[2022-10-26] MEDS ORDERED: OMEGA 3 (FISH OIL) 1000 MG CAP PO SCH (09:00)
[2022-10-26] MEDS ORDERED: LOSARTAN 25 MG (COZAAR) TAB PO SCH (09:00)
[2022-10-26] MEDS ORDERED: NON-FORMULARY MEDICATION 1 EA EA (Citalopram Hydrobromide (Citalopram HBr) 40 MG) PO SCH (09:00)
[2022-10-26] MEDS ORDERED: FERROUS SULF 325 MG (IRON) TAB PO SCH (09:00)
[2022-10-26] MEDS ORDERED: OLMESARTAN MEDOXOMIL 5 MG PO SCH (09:00)
[2022-10-26] MEDS ORDERED: FUROSEMIDE 20 MG (LASIX) TAB PO SCH (09:00)
== END 2022-10-25 19:00 | disposition home or self-care (01) ==
LOC: CATH 13:00 → CSD 15:23 → CATH 19:00
PROVIDERS: ATTEND Internal Medicine Cardiovascular Disease
DX: I25.10 Atherosclerotic heart disease of native coronary artery without angina pectoris (principal); I48.0 Paroxysmal atrial fibrillation; I65.23 Occlusion and stenosis of bilateral carotid arteries; I12.9 Hypertensive chronic kidney disease with stage 1 through stage 4 chronic kidney disease, or unspecified chronic kidney disease; E11.22 Type 2 diabetes mellitus with diabetic chronic kidney disease; N18.9 Chronic kidney disease, unspecified; R60.0 Localized edema; R42 Dizziness and giddiness; E78.2 Mixed hyperlipidemia; J44.9 Chronic obstructive pulmonary disease, unspecified; E66.9 Obesity, unspecified; Z68.32 Body mass index [BMI] 32.0-32.9, adult; Z95.5 Presence of coronary angioplasty implant and graft; Z79.82 Long term (current) use of aspirin; Z79.01 Long term (current) use of anticoagulants; Z79.899 Other long term (current) drug therapy; Z79.84 Long term (current) use of oral hypoglycemic drugs
CPT/HCPCS: 71045; 80053; 80061; 81000; 85027; 85347; 85610; 85730; 87081; 87088; 93005; 93458; 93571; C1725; C1769 ×2; C1874; C1887; C1894; C9600; 36415